=== PATIENT | male | born 1965 | race Caucasian/White ===

== ENCOUNTER 2019-08-02 08:31 | Inpatient (IN) | payer MEDICAID ==
[2019-08-02] MEDS ORDERED: HYDROmorphone 0.5 MG/0.5 ML Syringe IVPUSH ONE ×3 (08:51→11:50)
[2019-08-02] MEDS ORDERED: Metoclopramide 10 MG/2 ML SDV IVPUSH ONE (08:51)
--- NOTE | 2019-08-02 08:56 | EDM.PDOC ---
ED HPI GENERAL MEDICAL PROBLEM - General Chief Complaint: Abdominal Pain Stated Complaint: ABDOMINAL PAIN Time Seen by Provider: 08/02/19 08:40 Source of Information: Reports: Patient History Limitations: Reports: No Limitations - History of Present Illness INITIAL COMMENTS - FREE TEXT/NARRATIVE: 54-year-old male presents to the ED with diffuse abdominal pain. Associate with nausea and vomiting if he tries to eat or drink anything for the last 4 days. Pain started across the mid abdomen on Monday, July 28. Started vomiting the following morning. Was able to keep down a wee bit of food on July 28. Pain is gradually increased in intensity and is constant with a colicky component. He is aware of pain particular in the right upper quadrant of the abdomen and across the lower abdomen. He had 2 diarrhea stools yesterday without blood. Emesis is been all bilious or recently drank water fluids. Nothing will stay down. No fever or chills. No back pain. Pain is worsened slightly by deep breathing. He still feels he is passing small quantities of flatus. He feels bloated and distended. Previous surgery is that of inguinal herniorrhaphy repair x2 with mesh grafting done at 2 separate occasions. First surgey was 2 years ago Onset: Gradual Onset Date: 07/29/19 Duration: Day(s):, Constant, Getting Worse, Other (Is a colicky component to the pain.) Location: Reports: Abdomen (Generalized abdominal pain but perhaps worse right upper quadrant). Denies: Radiates to Quality: Reports: Ache, Sharp, Stabbing Severity: Moderate (710) Improves with: Reports: None Worsens with: Reports: Eating, Movement Context: Reports: Other (Spontaneous occurrence). Denies: Activity (But makes it worse. Riding in the vehicle made it worse.), Exercise, Lifting, Sick Contact, Trauma Associated Symptoms: Reports: Diaphoresis (Became diaphoretic this morning.), Loss of Appetite, Malaise, Nausea/Vomiting (Intractable nausea vomiting of bilious material), Syncope (Syncope today when he got up from bed). Denies: Confusion, Chest Pain, Cough, cough w sputum, Fever/Chills, Headaches Treatments MEDICAL POLICY SPECIALIST: Reports: Other (see below) (Nothing will stay down) Right Upper Abdomen Pain Score (Numeric/FACES): 8 - Related Data Allergies Allergy/AdvReac Type Severity Reaction Status Date / Time No Known Allergies Allergy Verified 08/02/19 13:18 Home Meds: Home Meds Acetaminophen/oxyCODONE [Percocet 325-10 MG] 1 tab PO BID 08/02/19 [History] Meloxicam 15 mg PO DAILY 08/02/19 [History] Sildenafil [Revatio] 20 mg PO ASDIRECTED PRN 08/02/19 [History] carisoprodoL [Soma] 350 mg PO BID 08/02/19 [History] Past Medical History - Past Surgical History HEENT Surgical History: Reports: Tonsillectomy GI Surgical History: Reports: Hernia, Inguinal Social & Family History - Tobacco Use Smoking Status *Q: Never Smoker - Caffeine Use Caffeine Use: Reports: None - Alcohol Use Alcohol Use History: Yes Days Per Week of Alcohol Use: 2 Number of Drinks Per Day: 10 Total Drinks Per Week: 20 Alcohol Use Frequency: Binges, Weekly - Living Situation & Occupation Living situation: Reports: Single ED ROS GENERAL - Review of Systems Review Of Systems: See Below Constitutional: Reports: Malaise, Weakness, Fatigue, Diaphoresis (Mostly this morning and last evening. Associated with diarrhea stools and feeling faint), Weight Loss. Denies: Fever, Chills HEENT: Reports: No Symptoms Respiratory: Reports: No Symptoms Cardiovascular: Reports: No Symptoms Endocrine: Reports: No Symptoms GI/Abdominal: Reports: Abdominal Pain (See history of present illness), Diarrhea (To lose diarrhea stools yesterday with no blood), Nausea, Vomiting ( Rectal nausea vomiting of bilious material). Denies: Decreased Appetite : Reports: Other (Urine is quite dark in color) Musculoskeletal: Reports: No Symptoms Skin: Reports: No Symptoms Neurological: Reports: Dizziness Psychiatric: Reports: No Symptoms (Near syncope this morning.) Hematologic/Lymphatic: Reports: No Symptoms Immunologic: Reports: No Symptoms ED EXAM, GI/ABD - Physical Exam Exam: See Below Exam Limited By: No Limitations General Appearance: Alert, WD/WN, Moderate Distress, Other (Temperature is 36.4. Heart rate is 89 and sinus respiratory is 20 BP 123/86 pulse ox 99% room air) Eyes: Bilateral: Normal Appearance (No scleral icterus or blepharal pallor.) Throat/Mouth: Other (Tongue is very dry and coated.) Head: Atraumatic, Normocephalic Neck: Normal Inspection, Supple, Non-Tender, Limited Range of Motion (He has previously fractured his neck and has very limited lateral rotation and extension and flexion of his neck. Recent steroid injection to his neck 5 days ago. Radiculopathy into his left upper extremity.). No: Lymphadenopathy (L), Lymphadenopathy (R) Respiratory/Chest: No Respiratory Distress, Lungs Clear, Normal Breath Sounds, No Accessory Muscle Use, Chest Non-Tender Cardiovascular: Normal Peripheral Pulses, Regular Rate, Rhythm, No Edema, No Murmur, No Rub GI/Abdominal Exam: No Organomegaly, No Abnormal Bruit, No Mass, Distended ( Absence of bowel sounds throughout. Distended and firm to palpation without any tympany.), Guarding, Tender (Generalized tenderness guarding slightly right upper quadrant and left lower quadrant of the abdomen.), Abnormal Bowel Sounds, Other (Be positive Paige sign). No: Rebound (Male) Exam: No Hernia, Other (Evidence of bilateral inguinal hernia raphe's. ) Back Exam: Normal Inspection, Full Range of Motion. No: CVA Tenderness (L), CVA Tenderness (R) Extremities: Normal Inspection, Normal Range of Motion, Non-Tender, No Pedal Edema Neurological: Alert, Oriented, CN II-XII Intact, Normal Cognition, Normal Gait, No Motor/Sensory Deficits Psychiatric: Anxious Skin Exam: Warm, Dry, Intact, Normal Color, No Rash EKG INTERPRETATION EKG Date: 08/02/19 Time: 10:08 Rhythm: Other (Sinus tachycardia) Rate (Beats/Min): 120 [place]: Normal P-Wave: Enlarged (Consider left atrial hypertrophy) QRS: Other (Early R wave transition V3. Consider septal hypertrophy pattern) ST-T: Normal QT: Prolonged (Moderately prolonged) EKG Interpretation Comments: Abnormal ECG Course - Vital Signs Last Recorded V/S: Last Vital Signs Temp 36.4 C 08/02/19 08:39 Pulse 132 H 08/02/19 08:39 Resp 20 08/02/19 08:39 BP 110/75 08/02/19 09:42 Pulse Ox 99 08/02/19 08:39 - Orders/Labs/Meds Orders: Active Orders 24 hr Category Date Time Status EKG Documentation Completion [RC] STAT Care 08/02/19 08:52 Active Orthostatic Vital Signs [RC] ASDIRECTED Care 08/02/19 08:54 Active CULTURE BLOOD [BC] Stat Lab 08/02/19 09:28 Received CULTURE BLOOD [BC] Stat Lab 08/02/19 09:35 Received MAGNESIUM [CHEM] AM Lab 08/03/19 05:11 Ordered MAGNESIUM [CHEM] AM Lab 08/04/19 05:11 Ordered MAGNESIUM [CHEM] AM Lab 08/05/19 05:11 Ordered Sodium Chloride 0.9% [Saline Flush] Med 08/02/19 10:12 Active 10 ml FLUSH ONETIME PRN Blood Culture x2 Reflex Set [OM.PC] Stat Oth 08/02/19 09:19 Ordered Medication Orders Acetaminophen (Tylenol) 650 mg PO Q4H PRN PRN Reason: Pain (Mild 1-3)/fever Dextrose/Sodium Chloride (Dextrose 5%-Normal Saline) 1,000 mls @ 150 mls/hr IV ASDIRECTED AZUL Stop: 08/03/19 19:54 Last Admin: 08/02/19 13:54 Dose: 150 mls/hr Magnesium Sulfate 4 gm/ Premix 50 mls @ 12.5 mls/hr IV ONETIME ONE Stop: 08/02/19 17:59 Last Admin: 08/02/19 13:54 Dose: 12.5 mls/hr Ketorolac Tromethamine (Toradol) 30 mg IV Q6H PRN PRN Reason: Pain (moderate 4-6) Lorazepam (Ativan) 0 mg IVPUSH Q4H PRN; Protocol PRN Reason: withdrawl Morphine Sulfate (Morphine) 2 mg IVPUSH Q2H PRN PRN Reason: Pain (severe 7-10) Stop: 08/03/19 13:04 Ondansetron HCl (Zofran Odt) 4 mg PO Q6H PRN PRN Reason: nausea, able to take PO Ondansetron HCl (Zofran) 4 mg IV Q6H PRN PRN Reason: Nausea/Vomiting Carisoprodol [Soma] (350 Mg) 0 each PO BID AZUL Meloxicam 15 Mg 0 each PO DAILY [facility] Sodium Chloride (Saline Flush) 10 ml FLUSH ONETIME PRN PRN Reason: IV FLUSH Last Admin: 08/02/19 10:27 Dose: 10 ml Labs: Laboratory Tests 08/02/19 08/02/19 08/02/19 Range/Units 09:00 09:00 09:00 WBC 23.94 H (4.23-9.07) K/mm3 RBC 3.91 L (4.63-6.08) M/mm3 Hgb 13.4 L (13.7-17.5) gm/dl Hct 38.7 L (40.1-51.0) % MCV 99.0 H (79.0-92.2) fl MCH 34.3 H (25.7-32.2) pg MCHC 34.6 (32.2-35.5) g/dl RDW Std Deviation 43.0 (35.1-43.9) fL Plt Count 345 H (163-337) K/mm3 MPV 9.3 L (9.4-12.3) fl Neutrophils % (Manual) 88 H (40-60) % Band Neutrophils % 0 (0-10) % Lymphocytes % (Manual) 7 L (20-40) % Atypical Lymphs % 0 % Monocytes % (Manual) 5 (2-10) % Eosinophils % (Manual) 0 L (0.8-7.0) % Basophils % (Manual) 0 L (0.2-1.2) Platelet Estimate Adequate RBC Morph Comment Normal PT 10.3 (9.7-12.0) SECONDS INR 0.94 APTT 21 L (22-31) SECONDS Sodium 137 (136-145) mEq/L Potassium 3.6 (3.5-5.1) mEq/L Chloride 98 (98-107) mEq/L Carbon Dioxide 27 (21-32) mEq/L Anion Gap 15.6 H (5-15) BUN 16 (7-18) mg/dL Creatinine 1.2 (0.7-1.3) mg/dL Est Cr Clr Drug Dosing 83.72 mL/min Estimated GFR (MDRD) > 60 (>60) mL/min BUN/Creatinine Ratio 13.3 L (14-18) Glucose 216 H (74-106) mg/dL Lactic Acid (0.4-2.0) mmol/L Calcium 8.8 (8.5-10.1) mg/dL Phosphorus (2.6-4.7) mg/dL Magnesium (1.8-2.4) mg/dl Total Bilirubin 1.1 H (0.2-1.0) mg/dL GGT 73 (15-85) U/L AST 16 (15-37) U/L ALT 30 (16-63) U/L Alkaline Phosphatase 59 (46-116) U/L Lactate Dehydrogenase (85-227) U/L C-Reactive Protein 1.0 (<1.0) mg/dL Total Protein 7.1 (6.4-8.2) g/dl Albumin 3.6 (3.4-5.0) g/dl Globulin 3.5 gm/dL Albumin/Globulin Ratio 1.0 (1-2) Triglycerides (<150) mg/dL Cholesterol (<200) mg/dL LDL Cholesterol Direct (<100) mg/dL HDL Cholesterol (40-59) mg/dL Lipase 2256 H (73-393) U/L Ketones (0.0-0.3) mM Hepatitis C Antibody (NEGATIVE) 08/02/19 08/02/19 08/02/19 Range/Units 09:00 09:00 09:00 WBC (4.23-9.07) K/mm3 RBC (4.63-6.08) M/mm3 Hgb (13.7-17.5) gm/dl Hct (40.1-51.0) % MCV (79.0-92.2) fl MCH (25.7-32.2) pg MCHC (32.2-35.5) g/dl RDW Std Deviation (35.1-43.9) fL Plt Count (163-337) K/mm3 MPV (9.4-12.3) fl Neutrophils % (Manual) (40-60) % Band Neutrophils % (0-10) % Lymphocytes % (Manual) (20-40) % Atypical Lymphs % % Monocytes % (Manual) (2-10) % Eosinophils % (Manual) (0.8-7.0) % Basophils % (Manual) (0.2-1.2) Platelet Estimate RBC Morph Comment PT (9.7-12.0) SECONDS INR APTT (22-31) SECONDS Sodium (136-145) mEq/L Potassium (3.5-5.1) mEq/L Chloride (98-107) mEq/L Carbon Dioxide (21-32) mEq/L Anion Gap (5-15) BUN (7-18) mg/dL Creatinine (0.7-1.3) mg/dL Est Cr Clr Drug Dosing mL/min Estimated GFR (MDRD) (>60) mL/min BUN/Creatinine Ratio (14-18) Glucose (74-106) mg/dL Lactic Acid (0.4-2.0) mmol/L Calcium (8.5-10.1) mg/dL Phosphorus (2.6-4.7) mg/dL Magnesium 1.3 L (1.8-2.4) mg/dl Total Bilirubin (0.2-1.0) mg/dL GGT (15-85) U/L AST (15-37) U/L ALT (16-63) U/L Alkaline Phosphatase (46-116) U/L Lactate Dehydrogenase (85-227) U/L C-Reactive Protein (<1.0) mg/dL Total Protein (6.4-8.2) g/dl Albumin (3.4-5.0) g/dl Globulin gm/dL Albumin/Globulin Ratio (1-2) Triglycerides (<150) mg/dL Cholesterol (<200) mg/dL LDL Cholesterol Direct (<100) mg/dL HDL Cholesterol (40-59) mg/dL Lipase (73-393) U/L Ketones 0.54 (0.0-0.3) mM Hepatitis C Antibody Negative (NEGATIVE) 08/02/19 08/02/19 08/02/19 Range/Units 09:00 09:00 09:28 WBC (4.23-9.07) K/mm3 RBC (4.63-6.08) M/mm3 Hgb (13.7-17.5) gm/dl Hct (40.1-51.0) % MCV (79.0-92.2) fl MCH (25.7-32.2) pg MCHC (32.2-35.5) g/dl RDW Std Deviation (35.1-43.9) fL Plt Count (163-337) K/mm3 MPV (9.4-12.3) fl Neutrophils % (Manual) (40-60) % Band Neutrophils % (0-10) % Lymphocytes % (Manual) (20-40) % Atypical Lymphs % % Monocytes % (Manual) (2-10) % Eosinophils % (Manual) (0.8-7.0) % Basophils % (Manual) (0.2-1.2) Platelet Estimate RBC Morph Comment PT (9.7-12.0) SECONDS INR APTT (22-31) SECONDS Sodium (136-145) mEq/L Potassium (3.5-5.1) mEq/L Chloride (98-107) mEq/L Carbon Dioxide (21-32) mEq/L Anion Gap (5-15) BUN (7-18) mg/dL Creatinine (0.7-1.3) mg/dL Est Cr Clr Drug Dosing mL/min Estimated GFR (MDRD) (>60) mL/min BUN/Creatinine Ratio (14-18) Glucose (74-106) mg/dL Lactic Acid 2.6 H* (0.4-2.0) mmol/L Calcium (8.5-10.1) mg/dL Phosphorus 4.8 H (2.6-4.7) mg/dL Magnesium (1.8-2.4) mg/dl Total Bilirubin (0.2-1.0) mg/dL GGT (15-85) U/L AST (15-37) U/L ALT (16-63) U/L Alkaline Phosphatase (46-116) U/L Lactate Dehydrogenase 219 (85-227) U/L C-Reactive Protein (<1.0) mg/dL Total Protein (6.4-8.2) g/dl Albumin (3.4-5.0) g/dl Globulin gm/dL Albumin/Globulin Ratio (1-2) Triglycerides 108 (<150) mg/dL Cholesterol 213 H (<200) mg/dL LDL Cholesterol Direct 118 H* (<100) mg/dL HDL Cholesterol 72.0 H (40-59) mg/dL Lipase (73-393) U/L Ketones (0.0-0.3) mM Hepatitis C Antibody (NEGATIVE) Meds: Medications Generic Name Dose Route Start Last Admin Trade Name Freq PRN Reason Stop Dose Admin Acetaminophen 650 mg 08/02/19 13:02 Tylenol PO Q4H PRN Pain (Mild 1-3)/fever Dextrose/Sodium Chloride 1,000 mls @ 150 mls/hr 08/02/19 13:15 08/02/19 13:54 Dextrose 5%-Normal Saline IV 08/03/19 19:54 150 mls/hr ASDIRECTED AZUL Administration Magnesium Sulfate 4 gm/ Premix 50 mls @ 12.5 mls/hr 08/02/19 14:00 08/02/19 13:54 IV 08/02/19 17:59 12.5 mls/hr ONETIME ONE Administration Ketorolac Tromethamine 30 mg 08/02/19 13:02 Toradol IV Q6H PRN Pain (moderate 4-6) Lorazepam 0 mg 08/02/19 14:01 Ativan IVPUSH Q4H PRN withdrawl Protocol Morphine Sulfate 2 mg 08/02/19 13:02 Morphine IVPUSH 08/03/19 13:04 Q2H PRN Pain (severe 7-10) Ondansetron HCl 4 mg 08/02/19 13:02 Zofran Odt PO Q6H PRN nausea, able to take PO Ondansetron HCl 4 mg 08/02/19 13:02 Zofran IV Q6H PRN Nausea/Vomiting Carisoprodol [Soma] 0 each 08/02/19 21:00 350 Mg PO BID AZUL Meloxicam 15 Mg 0 each 08/03/19 09:00 PO DAILY AZUL Sodium Chloride 10 ml 08/02/19 10:12 08/02/19 10:27 Saline Flush FLUSH 10 ml ONETIME PRN Administration IV FLUSH Discontinued Medications Generic Name Dose Route Start Last Admin Trade Name Freq PRN Reason Stop Dose Admin Enoxaparin Sodium 40 mg 08/02/19 14:00 Lovenox SUBCUT Q24H AZUL Hydromorphone HCl 0.5 mg 08/02/19 08:51 08/02/19 09:04 Dilaudid IVPUSH 08/02/19 08:52 0.5 mg ONETIME ONE Administration Hydromorphone HCl 0.5 mg 08/02/19 09:58 08/02/19 10:05 Dilaudid IVPUSH 08/02/19 09:59 0.5 mg ONETIME ONE Administration Hydromorphone HCl 0.5 mg 08/02/19 11:50 08/02/19 11:56 Dilaudid IVPUSH 08/02/19 11:51 0.5 mg ONETIME ONE Administration Dextrose/Lactated Ringer's 1,000 mls @ 999 mls/hr 08/02/19 09:00 08/02/19 09: 04 Dextrose 5%-Lactated Ringers IV 999 mls/hr ASDIRECTED AZUL Administration Dextrose/Lactated Ringer's 1,000 mls @ 500 mls/hr 08/02/19 10:15 08/02/19 10: 13 Dextrose 5%-Lactated Ringers IV 500 mls/hr ASDIRECTED AZUL Administration Iopamidol 100 ml 08/02/19 10:12 08/02/19 10:26 Isovue-370 (76%) IVPUSH 08/02/19 10:13 100 ml ONETIME ONE Administration Metoclopramide HCl 10 mg 08/02/19 08:51 08/02/19 09:04 Reglan IVPUSH 08/02/19 08:52 10 mg ONETIME ONE Administration - Radiology Interpretation Free Text/Narrative:: 54-year-old male presents to the ED with diffuse abdominal pain perhaps slightly worse right upper quadrant of the abdomen and left lower quadrant of the abdomen. He is distended but no tympany to percussion. He has absence of bowel sounds. He has been ill since Monday, July 28 i.e. 4 days ago. Has been able to keep anything down for the last 3 days. 2 diarrhea stools yesterday. No blood. Previous abdominal surgeries that of 2 inguinal herniorrhaphies with mesh grafting done at separate occasions. Plan IV D5 LR at open. Dilaudid 0.5 mg IV with Reglan 10 mg IV for pain and nausea relief. Orthostatic BPs. Patient is for chest x-ray and KUB. Routine labs to include a serum lipase and GGT. Questioning whether he has an acute cholecystitis although he is afebrile. - Re-Assessments/Exams Free Text/Narrative Re-Assessment/Exam: 08/02/19 09:04 and cannot complete orthostatic blood pressure. He got too dizzy and lightheaded. Systolic dropped as low as 85. I will have GB ultrasound ordered. 08/02/19 09:52 Chest x-ray done portably reveals injuries to multiple ribs on the right side which have healed. Appears to be a loculated chronic pneumothorax on the right side as well. This does cause some deformity of the anterior chest wall right side. Lungs are clear. Cardiac silhouette is normal. No free air evident. KUB reveals a few dilated loops of small bowel mid abdomen with no air-fluid levels. Ileus type pattern. Small amount of stool in the hepatic flexure. Paucity of gas throughout the colon.Labs reveal a markedly elevated white count of 23.94 with 88% neutrophils no bands cells reported. Hemoglobin is 13.4 with hematocrit of 38.7. Platelet count is 345, 000. Coags reveal a PT of 10.3 and INR of 0.94. PTT is 21. Sodium 137 with a potassium of 3.6. Chloride is 98 with a bicarb of 27. Anion gap is 15.6. BUN is 16 with a creatinine of 1.2. GFR is greater than 60. Glucose is elevated at 216. Patient is not known to be diabetic suspect stress response. Calcium is 8.8. Bilirubin minimally elevated at 1.1. The remainder of the liver function is normal. C-reactive protein is 1.0 lipase is elevated at 2256. Total protein 7.1 with an albumin fraction of 3.6 08/02/19 09:58 ultrasound of the gallbladder reveals no obvious stones. No pericholecystic fluid. Common bile duct is not visible. Appears to be a small amount of fluid around the liver. Head of the pancreas is not well visualized due to bowel gas. We will therefore proceed with CT of the abdomen with IV contrast only. Patient's pain is somewhat improved but could be better. Will repeat Dilaudid 0.5 mg IV 08/02/19 10:08 patient has completed first liter of D5 LR. Will repeat another liter at 500 mils per hour. 08/02/19 10:45 CT of the abdomen and pelvis has been performed with IV contrast only as the patient continues to vomit. It reveals a minimal hiatal hernia. Cardiac silhouette and lung bases are normal. Liver appears to be within normal limits with moderate fatty infiltration. No intraductal dilatation. Gallbladder is distended and appears to be normal without any calcified gallstones. Pancreas is seen and is slight haziness around the head suspicious for mild pancreatitis. Spleen is normal. There is notable fluid throughout the pelvis and extending up both paracolic gutters and around the liver and spleen. Hounsfield units on the fluid seen within the pelvis are suspicious for blood. Etiology for this presumed blood is not definitively visualized on this study. This is compatible with ascites. Both kidneys appear to be normal with no obstruction of the ureters. Low-density lesion seen within the right kidney which appears to be a simple cyst. It is 2.1 cm in size. There is also a low-density lesion in the left kidney measuring 6 mm. Believed to be cystic as well. Bladder appears to be normal. Visualized portions of the small and large bowel show some dilated loops of small bowel containing primarily fluid with no air-fluid levels to suggest obstruction. Small amount of stool present in the right hemicolon. Appendix is not definitely visualized but does not show any evidence of periappendiceal infiltrate. Clinically the patient has ascites although the Hounsfield units suggest it may be blood this would be unlikely as his hemoglobin is still 13.4. We will asked Dr. Gallegos on-call surgeon to see him in consultation. 08/02/19 10:51 ultrasound of the gallbladder reveals liver to be echogenic most left likely representing prominent fatty infiltration. Liver is otherwise not well seen because of the fatty infiltration. Gallbladder contains no shadowing gallstones no gallbladder wall thickening is seen. Small amount of ascites is seen within the upper right abdomen. Right kidney shows no hydronephrosis or mass. It measures 11.1 cm in length. Pancreas is mostly obscured from bowel gas. Inferior vena cava is patent. Main portal vein shows normal hepatopetal flow. Lactic acid returned elevated at 2.6. Serum ketones are elevated at 0.54. Magnesium not yet available.. 08/02/19 11:[address] Hieu Gallegos on-call hospitalist and he will see the patient in the ED. Plan will be to admit the patient for suspect acute pancreatitis with ascites to the hospitalist at this time. Dr. Silva is ornamental bronze worker. Have spoken with Dr. Silva and he is excepted care. 08/02/19 11:[address] Gallegos will be coming to see him in consultation and he will be admitted to the hospital per Dr. Silva for pancreatitis management. He has no history of ascites. Dates the pain is starting to come back. Will repeat Dilaudid 0.5 mg IV. 08/02/19 12:05 Hepatitis C screen is negative. Departure - Departure Time of Disposition: 12:35 Disposition: Admitted As Inpatient 68 Condition: Fair Clinical Impression: Depletion of volume of extracellular fluid, Metabolic acidosis with increased anion gap and accumulation of organic acids Acute pancreatitis without necrosis or infection, unspecified Qualifiers: Pancreatitis type: alcohol induced Qualified Code(s): K85.20 - Alcohol induced acute pancreatitis without necrosis or infection Ascites Qualifiers: Ascites type: other type Qualified Code(s): R18.8 - Other ascites Nausea & vomiting Qualifiers: Vomiting type: unspecified Vomiting Intractability: non-intractable Qualified Code(s): R11.2 - Nausea with vomiting, unspecified - Discharge Information *PRESCRIPTION DRUG MONITORING PROGRAM REVIEWED*: Not Applicable *COPY OF PRESCRIPTION DRUG MONITORING REPORT IN PATIENT ERICA: Not Applicable Sepsis Event Note - Evaluation Sepsis Screening Result: No Definite Risk - Focused Exam Vital Signs: Vital Signs Temp Pulse Resp BP Pulse Ox 08/02/19 09:42 110/75 08/02/19 08:39 36.4 C 132 H 20 123/86 99 Date Exam was Performed: 08/02/19 Time Exam was Performed: 17:05 - My Orders Last 24 Hours: My Active Orders 08/02/19 08:52 EKG Documentation Completion [RC] STAT 08/02/19 08:54 Orthostatic Vital Signs [RC] ASDIRECTED 08/02/19 09:19 Blood Culture x2 Reflex Set [OM.PC] Stat 08/02/19 09:28 CULTURE BLOOD [BC] Stat 08/02/19 09:35 CULTURE BLOOD [BC] Stat 08/02/19 10:12 Sodium Chloride 0.9% [Saline Flush] 10 ml FLUSH ONETIME PRN 08/03/19 05:11 MAGNESIUM [CHEM] AM 08/04/19 05:11 MAGNESIUM [CHEM] AM 08/05/19 05:11 MAGNESIUM [CHEM] AM - Assessment/Plan Last 24 Hours: My Active Orders 08/02/19 08:52 EKG Documentation Completion [RC] STAT 08/02/19 08:54 Orthostatic Vital Signs [RC] ASDIRECTED 08/02/19 09:19 Blood Culture x2 Reflex Set [OM.PC] Stat 08/02/19 09:28 CULTURE BLOOD [BC] Stat 08/02/19 09:35 CULTURE BLOOD [BC] Stat 08/02/19 10:12 Sodium Chloride 0.9% [Saline Flush] 10 ml FLUSH ONETIME PRN 08/03/19 05:11 MAGNESIUM [CHEM] AM 08/04/19 05:11 MAGNESIUM [CHEM] AM 08/05/19 05:11 MAGNESIUM [CHEM] AM
[2019-08-02] MEDS ORDERED: Dextrose 5%-Lactated Ringers 1,000 ML IV SCH ×2 (09:00→10:15)
--- NOTE | 2019-08-02 09:42 | CR ---
Abdomen: Supine view of the abdomen was obtained. Comparison: No previous study. Old rib fractures are partially visualized and appear to be healed within the right chest. Bowel gas pattern is normal. No abnormal calcifications or soft tissue abnormality is appreciated. Impression: 1. Nothing acute is seen on supine abdominal x-ray. Diagnostic code #2 This report was dictated in MDT
--- NOTE | 2019-08-02 09:59 | CR ---
Chest: PA view of the chest was obtained. Comparison: No previous chest imaging. Old healed bony trauma is noted within the right ribs and right scapula as well as distal right clavicle. Small amount of air noted within the pleural space within the upper right chest which is most likely chronic. No acute parenchymal change is otherwise seen. Heart size and mediastinum are normal. Impression: 1. Small pneumothorax within the right upper chest which most likely is loculated and chronic 2. Old bony trauma as noted above. 3. Nothing acute is definitely appreciated. Diagnostic code #2 This report was dictated in MDT
[2019-08-02] MEDS ORDERED: Iopamidol 755 Mg/ML 100 ML Bottle IVPUSH ONE (10:12)
[2019-08-02] MEDS ORDERED: Sodium Chloride 0.9% 10 ML Syringe FLUSH PRN (10:12)
--- NOTE | 2019-08-02 10:27 | US ---
Right upper quadrant abdominal ultrasound: Multiple real-time images of the upper right abdomen were obtained. Liver is echogenic most likely representing prominent fatty infiltration. Liver is otherwise not well seen because of the fatty infiltration. Gallbladder contains no shadowing gallstones. No gallbladder wall thickening is seen. Small amount of ascites is seen within the upper right abdomen. Right kidney shows no hydronephrosis or mass. Right kidney measures 11.1 cm in length. Pancreas is mostly obscured from bowel gas. Inferior vena cava is patent. Main portal vein shows normal hepatopedal flow. Impression: 1. Echogenic liver most likely representing prominent fatty infiltration. 2. Mild amount of ascites within the upper right abdomen. 3. Obscured pancreas due to bowel gas. Diagnostic code #3 This report was dictated in MDT
--- NOTE | 2019-08-02 10:49 | CT ---
CT abdomen and pelvis Technique: Multiple axial sections were obtained from above the dome of the diaphragm inferiorly through the pubic symphysis. Intravenous contrast was utilized. No oral contrast was given. Comparison: Previous right upper quadrant abdominal ultrasound performed earlier on the same day (9:39 AM) Findings: Visualized lung bases show nothing acute. Partially visualized old right-sided rib fractures are seen which appear healed. Fatty infiltration is noted within the liver. Gallbladder contains no calcified gallstones. Spleen appears within normal limits. Adrenal glands show no nodule. Pancreas shows slight haziness around the head suspicious for mild pancreatitis. Kidneys show symmetric contrast enhancement. Low density lesion is seen within the right kidney which does not have Hounsfield unit measurements of a simple cyst and measures 2.1 cm in size. Small low density finding is seen with left kidney measuring 6 mm. Delayed images shows contrast within the distal ureters as well as within the bladder. Aorta shows no aneurysm with atherosclerotic calcification. No retroperitoneal adenopathy or mesenteric abnormalities are seen. Fluid is seen within the pelvis which has Hounsfield unit measurements suspicious for blood. Fluid is also seen around the liver and spleen as well as within the paracolic gutters. Etiology for this presumed blood is not definitely visualized on this study. Bone window settings were reviewed which shows mild scattered degenerative change within the spine. Impression: 1. Fluid within the pelvis which appears to have Hounsfield unit measurements of blood. Lesser fluid is seen within the upper abdomen around the liver and spleen and within the paracolic gutters. Etiology of this finding is not seen on the exam. 2. Questionable mild pancreatitis around the pancreatic head and please correlate with amylase and lipase. 3. Low density lesion within the right kidney which is nonspecific regarding Hounsfield unit measurements. Differential includes solid lesion or hemorrhagic cyst. Nonemergent MRI is recommended to further evaluate. 4. Fatty infiltration within the liver and other findings as noted above which are felt to be nonacute. Diagnostic code #5 This report was dictated in MDT
--- NOTE | 2019-08-02 12:02 | PCM.HP.2 ---
H&P History of Present Illness - General Date of Service: 08/02/19 Source of Information: Patient, Old Records, Provider, RN, RN Notes Reviewed History Limitations: Reports: No Limitations - History of Present Illness Initial Comments - Free Text/Narative: Hieu Odell is a 54 yo male who presented to our ED on 08/02/19 with abdominal pain, nausea, and vomiting. He reports pain started across his mid abdomen on Monday, July 28 and then he began to vomit. He was able to keep down a small amount of fluid on July 28 but since then anytime he attempts to eat or drink he is vomited. Pain is increased and he reports it is constant with a colicky component. Reports pain is most prominent in his right upper quadrant and epigastric area. Reports he had 2 episodes of diarrhea yesterday. Reports his emesis has been bilious with no blood. Denies any fever, chills, or back pain. He has had inguinal hernia repair on 2 occasions. He also reports having had neck surgery secondary to a cervical spine fracture resulted in a PEG tube being placed. Twelve-lead EKG is obtained showing a sinus tachycardia at 120 bpm with enlarged P waves and early R wave transition in V3. There is a prolonged QT C. He is afebrile and blood pressure is 110/75. Pulse ox is 99% on room air with respiratory rate of 20. Labs are obtained showing leukocytosis at 23.94. Hemoglobin is barely low at 13.4. Platelets are high at 345,000. Neutrophils are elevated at 8% but there is no bandemia. INR is normal at 0.94. Sodium 137. Potassium on the low end of normal at 3.6. Chloride is 27. Anion gap is slightly elevated at 15.6. Creatinine is 1.2. GFR is greater than 60. Glucose is elevated to 16. Calcium is 8.8. Bilirubin is 1.1. GGT is 73. AST is 16, ALT 30, alkaline phosphatase 59. CRP is 1.0. Albumin is good at 3.6. Lipase is very high at 2256. Magnesium is low at 1.3. Ketones are elevated at 154. Hep C antibody is negative. Lactic acid is high at 2.6. He is given 2 D5LR fluid boluses and Dilaudid for pain. Chest x-rays obtained showing a small pneumothorax in the right upper chest which most likely is loculated and chronic. There is old bony trauma noted and nothing acute.0 abdominal ultrasound is obtained showing an echogenic liver most likely representing prominent fatty infiltration. Mild amount of ascites within the right upper abdomen. Obscured pancreas due to bowel gas. CT of the abdomen and pelvis is obtained showing fluid within the pelvis which appears to have a Hounsfield unit measurements of blood. Lesser fluid is seen within the upper abdomen around the liver and spleen and within the paracolic gutters. Etiology of findings not seen on his exam. Questionable mild pancreatitis around the pancreatic head and please correlate with amylase and lipase. Low-density lesion within the right kidney which is nonspecific regarding Hounsfield unit measurements differential includes solid lesion or hemorrhagic cyst. Nonemergent MRI is recommended to further evaluate. Fatty filtration with the liver and other findings as noted above which are felt to be nonacute. To do orthostatic vital signs in the ED however when he stood up he was too dizzy and his systolic blood pressure dropped to 85. Dr. Gallegos, general surgeon, was contacted in the ER and said he would be by to see this patient. He carries a history of prior neck surgery and he is on chronic opioid and muscle relaxant therapy for this. He was never a smoker. He does report alcohol use and states that he drinks significantly on his days off but then does not drink when he is working. He subsequently admitted to the medical floor for monitoring treatment of his pancreatitis, hypovolemia, and hypomagnesemia. Right Upper Abdomen Pain Score (Numeric/FACES): 8 - Related Data Allergies/Adverse Reactions: Allergies Allergy/AdvReac Type Severity Reaction Status Date / Time No Known Allergies Allergy Verified 08/02/19 13:18 Home Medications: Home Meds Acetaminophen/oxyCODONE [Percocet 325-10 MG] 1 tab PO BID 08/02/19 [History] Meloxicam 15 mg PO DAILY 08/02/19 [History] Sildenafil [Revatio] 20 mg PO ASDIRECTED PRN 08/02/19 [History] carisoprodoL [Soma] 350 mg PO BID 08/02/19 [History] Past Medical History - Past Surgical History HEENT Surgical History: Reports: Tonsillectomy GI Surgical History: Reports: Hernia, Inguinal Social & Family History - Tobacco Use Smoking Status *Q: Never Smoker - Caffeine Use Caffeine Use: Reports: None - Alcohol Use Days Per Week of Alcohol Use: 2 Number of Drinks Per Day: 10 Total Drinks Per Week: 20 - Living Situation & Occupation Living situation: Reports: Single H&P Review of Systems - Review of Systems: Review Of Systems: See Below General: Reports: No Symptoms, Fatigue (Hasn't slept much ). Denies: Fever, Chills, Malaise, Weakness HEENT: Reports: No Symptoms. Denies: Headaches, Sore Throat Pulmonary: Reports: No Symptoms. Denies: Shortness of Breath, Wheezing, Cough, Sputum Cardiovascular: Reports: Lightheadedness (when standing or ambulating ). Denies : Chest Pain, Palpitations, Dyspnea on Exertion, Edema Gastrointestinal: Reports: Abdominal Pain (RUQ>RLQ=Epigastric ), Nausea, Vomiting (earlier in day - none since ED ). Denies: Anorexia, Constipation, Diarrhea Genitourinary: Reports: No Symptoms. Denies: Pain Musculoskeletal: Reports: Neck Pain (Chronic 2/2 fractured neck) Skin: Reports: No Symptoms Psychiatric: Reports: No Symptoms. Denies: Confusion Neurological: Reports: No Symptoms, Difficulty Walking (2/2 hypotension - gets dizzy ). Denies: Weakness, Gait Disturbance Hematologic/Lymphatic: Reports: No Symptoms Immunologic: Reports: No Symptoms Exam - Exam Exam: See Below - Vital Signs Vital Signs: Last Vital Signs Temp 97.6 F 08/02/19 08:39 Pulse 132 H 08/02/19 08:39 Resp 20 08/02/19 08:39 BP 110/75 08/02/19 09:42 Pulse Ox 99 08/02/19 08:39 Weight: 220 lb - Exam Quality Assessment: DVT Prophylaxis. No: Supplemental Oxygen, Urinary Catheter General: Alert, Oriented, Cooperative. No: Mild Distress HEENT: Conjunctiva Clear, EACs Clear, Hearing Intact, Normal Nasal Septum, PERRLA. No: Mucosa Moist & [place] (dry ) Neck: Supple, Trachea Midline Lungs: Clear to Auscultation, Normal Respiratory Effort Cardiovascular: Regular Rate, Regular Rhythm GI/Abdominal Exam: Soft, Distended, Tender (RUQ>RLQ=Epigastric ), Abnormal Bowel Sounds (absent ) (Male) Exam: Deferred Rectal (Males) Exam: Deferred Extremities: Normal Inspection, Normal Range of Motion, Non-Tender, No Pedal Edema, Normal Capillary Refill Peripheral Pulses: 3+: Radial (L), Radial (R) Skin: Warm, Dry, Intact Neurological: Cranial Nerves Intact (Grossly ) Neuro Extensive - Mental Status: Alert, Oriented x3, Normal Mood/Affect - Patient Data Lab Results Last 24 hrs: Laboratory Results - last 24 hr 08/02/19 08/02/19 08/02/19 Range/Units 09:00 09:00 09:00 WBC 23.94 H (4.23-9.07) K/mm3 RBC 3.91 L (4.63-6.08) M/mm3 Hgb 13.4 L (13.7-17.5) gm/dl Hct 38.7 L (40.1-51.0) % MCV 99.0 H (79.0-92.2) fl MCH 34.3 H (25.7-32.2) pg MCHC 34.6 (32.2-35.5) g/dl RDW Std Deviation 43.0 (35.1-43.9) fL Plt Count 345 H (163-337) K/mm3 MPV 9.3 L (9.4-12.3) fl Neutrophils % (Manual) 88 H (40-60) % Band Neutrophils % 0 (0-10) % Lymphocytes % (Manual) 7 L (20-40) % Atypical Lymphs % 0 % Monocytes % (Manual) 5 (2-10) % Eosinophils % (Manual) 0 L (0.8-7.0) % Basophils % (Manual) 0 L (0.2-1.2) Platelet Estimate Adequate RBC Morph Comment Normal PT 10.3 (9.7-12.0) SECONDS INR 0.94 APTT 21 L (22-31) SECONDS Sodium 137 (136-145) mEq/L Potassium 3.6 (3.5-5.1) mEq/L Chloride 98 (98-107) mEq/L Carbon Dioxide 27 (21-32) mEq/L Anion Gap 15.6 H (5-15) BUN 16 (7-18) mg/dL Creatinine 1.2 (0.7-1.3) mg/dL Est Cr Clr Drug Dosing 83.72 mL/min Estimated GFR (MDRD) > 60 (>60) mL/min BUN/Creatinine Ratio 13.3 L (14-18) Glucose 216 H (74-106) mg/dL Lactic Acid (0.4-2.0) mmol/L Calcium 8.8 (8.5-10.1) mg/dL Magnesium (1.8-2.4) mg/dl Total Bilirubin 1.1 H (0.2-1.0) mg/dL GGT 73 (15-85) U/L AST 16 (15-37) U/L ALT 30 (16-63) U/L Alkaline Phosphatase 59 (46-116) U/L C-Reactive Protein 1.0 (<1.0) mg/dL Total Protein 7.1 (6.4-8.2) g/dl Albumin 3.6 (3.4-5.0) g/dl Globulin 3.5 gm/dL Albumin/Globulin Ratio 1.0 (1-2) Lipase 2256 H (73-393) U/L Ketones (0.0-0.3) mM Hepatitis C Antibody (NEGATIVE) 08/02/19 08/02/19 08/02/19 Range/Units 09:00 09:00 09:00 WBC (4.23-9.07) K/mm3 RBC (4.63-6.08) M/mm3 Hgb (13.7-17.5) gm/dl Hct (40.1-51.0) % MCV (79.0-92.2) fl MCH (25.7-32.2) pg MCHC (32.2-35.5) g/dl RDW Std Deviation (35.1-43.9) fL Plt Count (163-337) K/mm3 MPV (9.4-12.3) fl Neutrophils % (Manual) (40-60) % Band Neutrophils % (0-10) % Lymphocytes % (Manual) (20-40) % Atypical Lymphs % % Monocytes % (Manual) (2-10) % Eosinophils % (Manual) (0.8-7.0) % Basophils % (Manual) (0.2-1.2) Platelet Estimate RBC Morph Comment PT (9.7-12.0) SECONDS INR APTT (22-31) SECONDS Sodium (136-145) mEq/L Potassium (3.5-5.1) mEq/L Chloride (98-107) mEq/L Carbon Dioxide (21-32) mEq/L Anion Gap (5-15) BUN (7-18) mg/dL Creatinine (0.7-1.3) mg/dL Est Cr Clr Drug Dosing mL/min Estimated GFR (MDRD) (>60) mL/min BUN/Creatinine Ratio (14-18) Glucose (74-106) mg/dL Lactic Acid (0.4-2.0) mmol/L Calcium (8.5-10.1) mg/dL Magnesium 1.3 L (1.8-2.4) mg/dl Total Bilirubin (0.2-1.0) mg/dL GGT (15-85) U/L AST (15-37) U/L ALT (16-63) U/L Alkaline Phosphatase (46-116) U/L C-Reactive Protein (<1.0) mg/dL Total Protein (6.4-8.2) g/dl Albumin (3.4-5.0) g/dl Globulin gm/dL Albumin/Globulin Ratio (1-2) Lipase (73-393) U/L Ketones 0.54 (0.0-0.3) mM Hepatitis C Antibody Negative (NEGATIVE) 08/02/19 Range/Units 09:28 WBC (4.23-9.07) K/mm3 RBC (4.63-6.08) M/mm3 Hgb (13.7-17.5) gm/dl Hct (40.1-51.0) % MCV (79.0-92.2) fl MCH (25.7-32.2) pg MCHC (32.2-35.5) g/dl RDW Std Deviation (35.1-43.9) fL Plt Count (163-337) K/mm3 MPV (9.4-12.3) fl Neutrophils % (Manual) (40-60) % Band Neutrophils % (0-10) % Lymphocytes % (Manual) (20-40) % Atypical Lymphs % % Monocytes % (Manual) (2-10) % Eosinophils % (Manual) (0.8-7.0) % Basophils % (Manual) (0.2-1.2) Platelet Estimate RBC Morph Comment PT (9.7-12.0) SECONDS INR APTT (22-31) SECONDS Sodium (136-145) mEq/L Potassium (3.5-5.1) mEq/L Chloride (98-107) mEq/L Carbon Dioxide (21-32) mEq/L Anion Gap (5-15) BUN (7-18) mg/dL Creatinine (0.7-1.3) mg/dL Est Cr Clr Drug Dosing mL/min Estimated GFR (MDRD) (>60) mL/min BUN/Creatinine Ratio (14-18) Glucose (74-106) mg/dL Lactic Acid 2.6 H* (0.4-2.0) mmol/L Calcium (8.5-10.1) mg/dL Magnesium (1.8-2.4) mg/dl Total Bilirubin (0.2-1.0) mg/dL GGT (15-85) U/L AST (15-37) U/L ALT (16-63) U/L Alkaline Phosphatase (46-116) U/L C-Reactive Protein (<1.0) mg/dL Total Protein (6.4-8.2) g/dl Albumin (3.4-5.0) g/dl Globulin gm/dL Albumin/Globulin Ratio (1-2) Lipase (73-393) U/L Ketones (0.0-0.3) mM Hepatitis C Antibody (NEGATIVE) Result Diagrams: 08/02/19 09:00 08/02/19 09:00 Sepsis Event Note - Evaluation Sepsis Screening Result: No Definite Risk - Focused Exam Vital Signs: Vital Signs Temp Pulse Resp BP Pulse Ox 08/02/19 09:42 110/75 08/02/19 08:39 97.6 F 132 H 20 123/86 99 Date Exam was Performed: 08/02/19 Time Exam was Performed: 15:51 - Problem List (1) Pancreatitis SNOMED Code(s): 70261903 ICD Code: K85.90 - ACUTE PANCREATITIS WITHOUT NECROSIS OR INFECTION, UNSP Status: Acute Priority: High Current Visit: Yes Qualifiers: Chronicity: acute Pancreatitis type: alcohol induced Acute pancreatitis complication: unspecified Qualified Code(s): K85.20 - Alcohol induced acute pancreatitis without necrosis or infection (2) Elevated lactic acid level SNOMED Code(s): 9245647 ICD Code: R79.89 - OTHER SPECIFIED ABNORMAL FINDINGS OF BLOOD CHEMISTRY Status: Acute Priority: High Current Visit: Yes (3) Hypovolemia SNOMED Code(s): 640012642 ICD Code: E86.1 - HYPOVOLEMIA Status: Acute Priority: High Current Visit: Yes (4) Orthostatic hypotension SNOMED Code(s): 93425928 ICD Code: I95.1 - ORTHOSTATIC HYPOTENSION Status: Acute Priority: High Current Visit: Yes (5) Nausea & vomiting SNOMED Code(s): 01287493 ICD Code: R11.2 - NAUSEA WITH VOMITING, UNSPECIFIED Status: Acute Priority: High Current Visit: Yes Qualifiers: Vomiting type: unspecified Vomiting Intractability: non-intractable Qualified Code(s): R11.2 - Nausea with vomiting, unspecified (6) History of alcohol use SNOMED Code(s): 981795729 ICD Code: Z87.898 - PERSONAL HISTORY OF OTHER SPECIFIED CONDITIONS Status: Acute Priority: High Current Visit: Yes (7) Chronic neck pain SNOMED Code(s): 8130391010721 ICD Code: M54.2 - CERVICALGIA; G89.29 - OTHER CHRONIC PAIN Status: Chronic Priority: Medium Current Visit: No (8) History of cervical fracture SNOMED Code(s): 856041620, 303767962 ICD Code: Z87.81 - PERSONAL HISTORY OF (HEALED) TRAUMATIC FRACTURE Status: Chronic Priority: Medium Current Visit: No (9) Chronic, continuous use of opioids SNOMED Code(s): 864261805 ICD Code: F11.90 - OPIOID USE, UNSPECIFIED, UNCOMPLICATED Status: Chronic Priority: Medium Current Visit: No (10) Ascites SNOMED Code(s): 180154374 ICD Code: R18.8 - OTHER ASCITES Status: Acute Priority: High Current Visit: Yes Qualifiers: Ascites type: other type Qualified Code(s): R18.8 - Other ascites (11) Leukocytosis SNOMED Code(s): 142982090, 396667180 ICD Code: D72.829 - ELEVATED WHITE BLOOD CELL COUNT, UNSPECIFIED Status: Acute Priority: High Current Visit: Yes Qualifiers: Leukocytosis type: unspecified Qualified Code(s): D72.829 - Elevated white blood cell count, unspecified (12) Hypomagnesemia SNOMED Code(s): 455345796 ICD Code: E83.42 - HYPOMAGNESEMIA Status: Acute Priority: High Current Visit: Yes (13) Hyperbilirubinemia SNOMED Code(s): 20248264 ICD Code: E80.6 - OTHER DISORDERS OF BILIRUBIN METABOLISM Status: Acute Priority: High Current Visit: Yes (14) Abnormal CT scan SNOMED Code(s): 314332110 ICD Code: R93.89 - ABNORMAL FINDINGS ON DX IMAGING OF [facility] BODY STRUCTURES Status: Acute Priority: High Current Visit: Yes (15) High anion gap metabolic acidosis SNOMED Code(s): 44184666 ICD Code: E87.2 - ACIDOSIS Status: Acute Current Visit: Yes Problem List Initiated/Reviewed/Updated: Yes Orders Last 24hrs: Active Orders 24 hr Category Date Time Status EKG Documentation Completion [RC] STAT Care 08/02/19 08:52 Active Orthostatic Vital Signs [RC] ASDIRECTED Care 08/02/19 08:54 Active CULTURE BLOOD [BC] Stat Lab 08/02/19 09:28 Received CULTURE BLOOD [BC] Stat Lab 08/02/19 09:35 Received MAGNESIUM [CHEM] AM Lab 08/03/19 05:11 Ordered MAGNESIUM [CHEM] AM Lab 08/04/19 05:11 Ordered MAGNESIUM [CHEM] AM Lab 08/05/19 05:11 Ordered Dextrose 5%-Lactated Ringers 1,000 ml Med 08/02/19 09:00 Active IV ASDIRECTED Dextrose 5%-Lactated Ringers 1,000 ml Med 08/02/19 10:15 Active IV ASDIRECTED Sodium Chloride 0.9% [Saline Flush] Med 08/02/19 10:12 Active 10 ml FLUSH ONETIME PRN Blood Culture x2 Reflex Set [OM.PC] Stat Oth 08/02/19 09:19 Ordered Medication Orders Dextrose/Lactated Ringer's (Dextrose 5%-Lactated Ringers) 1,000 mls @ 999 mls/ hr IV ASDIRECTED AZUL Last Admin: 08/02/19 09:04 Dose: 999 mls/hr Dextrose/Lactated Ringer's (Dextrose 5%-Lactated Ringers) 1,000 mls @ 500 mls/ hr IV ASDIRECTED AZUL Last Admin: 08/02/19 10:13 Dose: 500 mls/hr Sodium Chloride (Saline Flush) 10 ml FLUSH ONETIME PRN PRN Reason: IV FLUSH Last Admin: 08/02/19 10:27 Dose: 10 ml Assessment/Plan Comment:: Pancreatitis Elevated lactic acid level Hypovolemia Orthostatic hypotension Nausea & vomiting Ascites Leukocytosis Hyperbilirubinemia Hypomagnesemia Abnormal CT scan High anion gap metabolic acidosis Reports abdominal pain that began around July 28 Nausea and vomiting began July 29 Unable to keep anything down Has had diarrhea as well Denies hematochezia, hematemesis Lab abnormalities likely 2/2 hypovolemia 2/2 vomiting and poor oral intake CT scan shows: -Fluid within pelvis with Hounsfield unit measurement of blood -Questionable mild pancreatitis -Low density lesion in right kidney - recommend nonemergent MRI to further evaluate -Fatty infiltration within the liver Dr. Gallegos, general surgery consulted in ED Magnesium 1.6 Lactic acid 2.6 - likely elevate due to hypovolemia and not infectious process Blood cultures obtained in ED CRP WNL Leukocytosis 2/2 hypovolemia and mild pancreatitis 2L IV fluids given in ED Lipase 2256 No signs of cholelithiasis - Liver enzymes normal, GGT normal PLAN - NPO - IV fluids as ordered - Blood glucose checks Q6Hr - Repeat lipase, CBC, CMP, Magnesium in AM - No obvious need for antibiotics as this time - Lipid panel ordered - 4gm magnesium ordered - Antiemetics as ordered - Repeat lactic acid in 4hrs per mary ann Srivastava's criteria: Inital - 2 pts. 1% predicted mortality rate - Pain medications as ordered - Repeat labs as ordered History of alcohol use Reports he drinks heavily when off work and abstains from ETOH when working Last reported drink was Monday Denies any problems with detox or seizures in the past Unlikely to detox given reported last drink was 5 days prior to admission PLAN - [facility] protocol - Ativan as needed - ETOH counseling - SW consult - Pancreatitis above likely induced by ETOH use Chronic neck pain History of cervical fracture Chronic, continuous use of opioids On home Percocet, meloxicam, and Soma PLAN - Continue meloxicam and soma - Monitor for worsening of symptoms - PRN pain medications as ordered DVT prophylaxis: VTE score of 1 - not indicated GI prophylaxis: Not indicated PCP: Dr. Minor Code status: Full code Disposition: Patient will be admitted for IV fluids, monitoring, and management of pancreatitis - likely ETOH induced. LOS likely 4 days. Prognosis: Guarded Recommend outpatient MRI of abdomen to evaluate right kidney lesion - unable to obtain MRI over weekend at our facility.
[2019-08-02] MEDS ORDERED: Ketorolac 30 MG/ML SDV IV PRN (13:02)
[2019-08-02] MEDS ORDERED: Acetaminophen 325 MG Tab PO PRN (13:02)
[2019-08-02] MEDS ORDERED: Ondansetron 4 MG Tab.DIS PO PRN (13:02)
[2019-08-02] MEDS ORDERED: Ondansetron 4 MG/2 ML SDV IV PRN (13:02)
--- NOTE | 2019-08-02 13:39 | PCM.CONS ---
H&P History of Present Illness - General Date of Service: 08/02/19 Admit Problem/Dx: Admission Diagnosis/Problem Admission Diagnosis/Problem Acute pancreatitis acute pancreatitis Source of Information: Patient History Limitations: Reports: No Limitations - History of Present Illness Duration of Symptoms: Reports: Day(s): Location: Reports: Abdomen Associated Symptoms: Reports: Nausea/Vomiting Other HPI/Comments: Mr. Odell is a 54 yo man presenting to the ER with a few days of nausea, vomiting and abdominal pain. He has never had pain or vomiting like this before. He denies fever or other associated symptoms. He has a history of chronic neck and back pain, and had undergone an injection just prior to the onset of his symptoms. Vomitus is described as light yellow. He denies hematemesis. In the emergency room, he is in no acute distress. RUQ US did not show evidence of gallstones. A follow-up CT scan of the abdomen and pelvis with IV contrast shows significant volume of peritoneal fluid with Hounsfield units consistent with hemoperitoneum , though no source for this possibility is identified on imaging. Mild inflammatory changes are noted around the pancreas. The patient reports history of alcoholism, but he has no known liver disease or history of pancreatitis. Lab work is significant for WBC >20,000 and lipase > 2000. His Hgb is 13.4 g/dL , and he has no history of coagulopathy or significant bleeding. He denies any recent trauma. 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 injections - Infectious Disease History Infectious Disease History: Reports: Chicken Pox - Past Surgical History HEENT Surgical History: Reports: Tonsillectomy GI Surgical History: Reports: Hernia, Inguinal Social & Family History - Family History Family Medical History: Noncontributory - Tobacco Use Smoking Status *Q: Never Smoker Used Tobacco, but Quit: Yes Month/Year Tobacco Last Used: 2015 - Caffeine Use Caffeine Use: Reports: None - Alcohol Use Days Per Week of Alcohol Use: 2 Number of Drinks Per Day: 10 Total Drinks Per Week: 20 Date of Last Drink: 07/28/19 - Recreational Drug Use Recreational Drug Use: No - Living Situation & Occupation Living situation: Reports: Single H&P Review of Systems - Review of Systems: Review Of Systems: See Below General: Reports: Malaise HEENT: Reports: No Symptoms Pulmonary: Reports: No Symptoms Cardiovascular: Reports: No Symptoms Gastrointestinal: Reports: Abdominal Pain, Distension, Nausea, Vomiting Genitourinary: Reports: No Symptoms Musculoskeletal: Reports: Neck Pain, Back Pain Skin: Reports: No Symptoms Psychiatric: Reports: No Symptoms Neurological: Reports: No Symptoms Hematologic/Lymphatic: Reports: No Symptoms Exam - Exam Exam: See Below - Vital Signs Vital Signs: Last Vital Signs Temp 36.4 C 08/02/19 08:39 Pulse 132 H 08/02/19 08:39 Resp 20 08/02/19 08:39 BP 110/75 08/02/19 09:42 Pulse Ox 99 08/02/19 08:39 Weight: 99.79 kg - Exam General: Alert, Oriented, Cooperative HEENT: Conjunctiva Clear Neck: Trachea Midline Lungs: Clear to Auscultation, Normal Respiratory Effort Cardiovascular: Regular Rate GI/Abdominal Exam: Other (distended, dull to percussion, focally tender at epigastrium, no palpable mass. LUQ scar from prior feeding gastrostomy tube) Rectal (Males) Exam: Deferred Extremities: Normal Inspection, Normal Capillary Refill Skin: Warm, Dry Neuro Extensive - Mental Status: Alert, Oriented x3 Psychiatric: Normal Mood - Patient Data Lab Results Last 24 hrs: Laboratory Results - last 24 hr 08/02/19 08/02/19 08/02/19 Range/Units 09:00 09:00 09:00 WBC 23.94 H (4.23-9.07) K/mm3 RBC 3.91 L (4.63-6.08) M/mm3 Hgb 13.4 L (13.7-17.5) gm/dl Hct 38.7 L (40.1-51.0) % MCV 99.0 H (79.0-92.2) fl MCH 34.3 H (25.7-32.2) pg MCHC 34.6 (32.2-35.5) g/dl RDW Std Deviation 43.0 (35.1-43.9) fL Plt Count 345 H (163-337) K/mm3 MPV 9.3 L (9.4-12.3) fl Neutrophils % (Manual) 88 H (40-60) % Band Neutrophils % 0 (0-10) % Lymphocytes % (Manual) 7 L (20-40) % Atypical Lymphs % 0 % Monocytes % (Manual) 5 (2-10) % Eosinophils % (Manual) 0 L (0.8-7.0) % Basophils % (Manual) 0 L (0.2-1.2) Platelet Estimate Adequate RBC Morph Comment Normal PT 10.3 (9.7-12.0) SECONDS INR 0.94 APTT 21 L (22-31) SECONDS Sodium 137 (136-145) mEq/L Potassium 3.6 (3.5-5.1) mEq/L Chloride 98 (98-107) mEq/L Carbon Dioxide 27 (21-32) mEq/L Anion Gap 15.6 H (5-15) BUN 16 (7-18) mg/dL Creatinine 1.2 (0.7-1.3) mg/dL Est Cr Clr Drug Dosing 83.72 mL/min Estimated GFR (MDRD) > 60 (>60) mL/min BUN/Creatinine Ratio 13.3 L (14-18) Glucose 216 H (74-106) mg/dL Lactic Acid (0.4-2.0) mmol/L Calcium 8.8 (8.5-10.1) mg/dL Magnesium (1.8-2.4) mg/dl Total Bilirubin 1.1 H (0.2-1.0) mg/dL GGT 73 (15-85) U/L AST 16 (15-37) U/L ALT 30 (16-63) U/L Alkaline Phosphatase 59 (46-116) U/L C-Reactive Protein 1.0 (<1.0) mg/dL Total Protein 7.1 (6.4-8.2) g/dl Albumin 3.6 (3.4-5.0) g/dl Globulin 3.5 gm/dL Albumin/Globulin Ratio 1.0 (1-2) Lipase 2256 H (73-393) U/L Ketones (0.0-0.3) mM Hepatitis C Antibody (NEGATIVE) 08/02/19 08/02/19 08/02/19 Range/Units 09:00 09:00 09:00 WBC (4.23-9.07) K/mm3 RBC (4.63-6.08) M/mm3 Hgb (13.7-17.5) gm/dl Hct (40.1-51.0) % MCV (79.0-92.2) fl MCH (25.7-32.2) pg MCHC (32.2-35.5) g/dl RDW Std Deviation (35.1-43.9) fL Plt Count (163-337) K/mm3 MPV (9.4-12.3) fl Neutrophils % (Manual) (40-60) % Band Neutrophils % (0-10) % Lymphocytes % (Manual) (20-40) % Atypical Lymphs % % Monocytes % (Manual) (2-10) % Eosinophils % (Manual) (0.8-7.0) % Basophils % (Manual) (0.2-1.2) Platelet Estimate RBC Morph Comment PT (9.7-12.0) SECONDS INR APTT (22-31) SECONDS Sodium (136-145) mEq/L Potassium (3.5-5.1) mEq/L Chloride (98-107) mEq/L Carbon Dioxide (21-32) mEq/L Anion Gap (5-15) BUN (7-18) mg/dL Creatinine (0.7-1.3) mg/dL Est Cr Clr Drug Dosing mL/min Estimated GFR (MDRD) (>60) mL/min BUN/Creatinine Ratio (14-18) Glucose (74-106) mg/dL Lactic Acid (0.4-2.0) mmol/L Calcium (8.5-10.1) mg/dL Magnesium 1.3 L (1.8-2.4) mg/dl Total Bilirubin (0.2-1.0) mg/dL GGT (15-85) U/L AST (15-37) U/L ALT (16-63) U/L Alkaline Phosphatase (46-116) U/L C-Reactive Protein (<1.0) mg/dL Total Protein (6.4-8.2) g/dl Albumin (3.4-5.0) g/dl Globulin gm/dL Albumin/Globulin Ratio (1-2) Lipase (73-393) U/L Ketones 0.54 (0.0-0.3) mM Hepatitis C Antibody Negative (NEGATIVE) 08/02/19 Range/Units 09:28 WBC (4.23-9.07) K/mm3 RBC (4.63-6.08) M/mm3 Hgb (13.7-17.5) gm/dl Hct (40.1-51.0) % MCV (79.0-92.2) fl MCH (25.7-32.2) pg MCHC (32.2-35.5) g/dl RDW Std Deviation (35.1-43.9) fL Plt Count (163-337) K/mm3 MPV (9.4-12.3) fl Neutrophils % (Manual) (40-60) % Band Neutrophils % (0-10) % Lymphocytes % (Manual) (20-40) % Atypical Lymphs % % Monocytes % (Manual) (2-10) % Eosinophils % (Manual) (0.8-7.0) % Basophils % (Manual) (0.2-1.2) Platelet Estimate RBC Morph Comment PT (9.7-12.0) SECONDS INR APTT (22-31) SECONDS Sodium (136-145) mEq/L Potassium (3.5-5.1) mEq/L Chloride (98-107) mEq/L Carbon Dioxide (21-32) mEq/L Anion Gap (5-15) BUN (7-18) mg/dL Creatinine (0.7-1.3) mg/dL Est Cr Clr Drug Dosing mL/min Estimated GFR (MDRD) (>60) mL/min BUN/Creatinine Ratio (14-18) Glucose (74-106) mg/dL Lactic Acid 2.6 H* (0.4-2.0) mmol/L Calcium (8.5-10.1) mg/dL Magnesium (1.8-2.4) mg/dl Total Bilirubin (0.2-1.0) mg/dL GGT (15-85) U/L AST (15-37) U/L ALT (16-63) U/L Alkaline Phosphatase (46-116) U/L C-Reactive Protein (<1.0) mg/dL Total Protein (6.4-8.2) g/dl Albumin (3.4-5.0) g/dl Globulin gm/dL Albumin/Globulin Ratio (1-2) Lipase (73-393) U/L Ketones (0.0-0.3) mM Hepatitis C Antibody (NEGATIVE) Result Diagrams: 08/02/19 09:00 08/02/19 09:00 Sepsis Event Note - Evaluation Sepsis Screening Result: No Definite Risk - Focused Exam Vital Signs: Vital Signs Temp Pulse Resp BP Pulse Ox 08/02/19 09:42 110/75 08/02/19 08:39 36.4 C 132 H 20 123/86 99 Date Exam was Performed: 08/02/19 Time Exam was Performed: 13:31 *Q Meaningful Use (ADM) - VTE Risk Assess *Q Each Risk Factor Represents 1 Point: Age 41 - 59 years Total Score 1 Point Risk Factors: 1 Consult PN Assessment/Plan Procedures: Procedures MR-STAPH DNA AMP PROBE (01/01/19) Problem List Initiated/Reviewed/Updated: Yes Plan: History and exam findings are most consistent with acute alcoholic pancreatitis. CT findings suggestive of hemoperitoneum, which may be related to hemorrhagic pancreatitis vs trauma vs ruptured pseudoaneurysm etc. He appears hemodynamically normal without exam findings suggestive of anemia. Abdomen is not acute. Recommend hospitalist team admission for medical management of pancreatitis; I will be available for reassessment and recommendations as needed. Requesting Provider: Lelia Date Consult Requested: 08/02/19 Reason for Consult: question of hemoperitoneum Patient History Reviewed: Yes Admission H&P Reviewed: Yes
[2019-08-02] MEDS: Dextrose 5%-0.9% NaCl 1,000 ML IV SCH ×2 (13:54→21:23)
[2019-08-02] MEDS ORDERED: Magnesium Sulfate/Water 4 GM in Premix Bag 1 BAG IV ONE (14:00)
[2019-08-02] MEDS ORDERED: Enoxaparin 40 MG/0.4 ML Syringe SUBCUT SCH (14:00)
[2019-08-02] MEDS ORDERED: LORazepam 2 MG/ML SDV IVPUSH PRN (14:01)
[2019-08-02] MEDS ORDERED: traZODone 50 MG Tab PO PRN (21:08)
[2019-08-02] MEDS: Morphine 2 MG/ML SYRINGE IVPUSH PRN (21:39)
[2019-08-02] MEDS: Insulin Lispro 100 Units/ML 3 ML Vial SUBCUT SCH (21:40)
[2019-08-03] MEDS: Dextrose 5%-0.9% NaCl with KCl 1,000 ML IV SCH ×2 (04:09→10:48)
[2019-08-03] MEDS: Insulin Lispro 100 Units/ML 3 ML Vial SUBCUT SCH ×4 (07:33→23:53)
[2019-08-03] MEDS: Morphine 2 MG/ML SYRINGE IVPUSH PRN ×3 (08:22→12:47)
[2019-08-03] MEDS: Potassium Chloride 10 MEQ in Premix Bag 1 BAG IV SCH ×4 (10:49→14:32)
[2019-08-03] MEDS ORDERED: Bisacodyl 10 MG Supp RECTAL ONE (12:16)
--- NOTE | 2019-08-03 12:23 | PCM.CONSN ---
- General Info Date of Service: 08/03/19 Admission Dx/Problem (Free Text): acute pancreatitis Functional Status: Reports: Pain Controlled, Urinating - Review of Systems Gastrointestinal: Reports: Other (less nausea and vomiting. More distended, feels the need to have a bowel movement. Passing some flatus. ) - Patient Data Vitals - Most Recent: Last Vital Signs Temp 36.7 C 08/03/19 08:36 Pulse 101 H 08/03/19 08:36 Resp 18 08/03/19 08:36 BP 148/67 H 08/03/19 08:36 Pulse Ox 100 08/03/19 08:36 Weight - Most Recent: 93.848 kg I&O - Last 24 Hours: Intake & Output 08/02/19 08/03/19 08/03/19 22:59 06:59 14:59 Intake Total 600 1800 Balance 600 1800 Lab Results Last 24 Hours: Laboratory Results - last 24 hr 08/02/19 08/02/19 08/02/19 Range/Units 09:00 09:00 14:42 WBC (4.23-9.07) K/mm3 RBC (4.63-6.08) M/mm3 Hgb (13.7-17.5) gm/dl Hct (40.1-51.0) % MCV (79.0-92.2) fl MCH (25.7-32.2) pg MCHC (32.2-35.5) g/dl RDW Std Deviation (35.1-43.9) fL Plt Count (163-337) K/mm3 MPV (9.4-12.3) fl Neut % (Auto) (34.0-67.9) % Lymph % (Auto) (21.8-53.1) % Arthur % (Auto) (5.3-12.2) % Eos % (Auto) (0.8-7.0) Baso % (Auto) (0.1-1.2) % Neut # (Auto) (1.78-5.38) K/mm3 Lymph # (Auto) (1.32-3.57) K/mm3 Arthur # (Auto) (0.30-0.82) K/mm3 Eos # (Auto) (0.04-0.54) K/mm3 Baso # (Auto) (0.01-0.08) K/mm3 Manual Slide Review Sodium (136-145) mEq/L Potassium (3.5-5.1) mEq/L Chloride (98-107) mEq/L Carbon Dioxide (21-32) mEq/L Anion Gap (5-15) BUN (7-18) mg/dL Creatinine (0.7-1.3) mg/dL Est Cr Clr Drug Dosing mL/min Estimated GFR (MDRD) (>60) mL/min BUN/Creatinine Ratio (14-18) Glucose (74-106) mg/dL POC Glucose (70-105) mg/dL Lactic Acid 1.0 (0.4-2.0) mmol/L Calcium (8.5-10.1) mg/dL Phosphorus 4.8 H (2.6-4.7) mg/dL Magnesium (1.8-2.4) mg/dl Total Bilirubin (0.2-1.0) mg/dL AST (15-37) U/L ALT (16-63) U/L Alkaline Phosphatase (46-116) U/L Lactate Dehydrogenase 219 (85-227) U/L Total Protein (6.4-8.2) g/dl Albumin (3.4-5.0) g/dl Globulin gm/dL Albumin/Globulin Ratio (1-2) Triglycerides 108 (<150) mg/dL Cholesterol 213 H (<200) mg/dL LDL Cholesterol Direct 118 H* (<100) mg/dL HDL Cholesterol 72.0 H (40-59) mg/dL Lipase (73-393) U/L 08/02/19 08/02/19 08/03/19 Range/Units 20:36 21:38 04:58 WBC 21.28 H (4.23-9.07) K/mm3 RBC 3.22 L (4.63-6.08) M/mm3 Hgb 10.8 L D (13.7-17.5) gm/dl Hct 32.1 L (40.1-51.0) % MCV 99.7 H (79.0-92.2) fl MCH 33.5 H (25.7-32.2) pg MCHC 33.6 (32.2-35.5) g/dl RDW Std Deviation 42.7 (35.1-43.9) fL Plt Count 273 (163-337) K/mm3 MPV 9.6 (9.4-12.3) fl Neut % (Auto) 82.4 H (34.0-67.9) % Lymph % (Auto) 7.8 L (21.8-53.1) % Arthur % (Auto) 8.7 (5.3-12.2) % Eos % (Auto) 0.3 L (0.8-7.0) Baso % (Auto) 0.1 (0.1-1.2) % Neut # (Auto) 17.54 H (1.78-5.38) K/mm3 Lymph # (Auto) 1.65 (1.32-3.57) K/mm3 Arthur # (Auto) 1.85 H (0.30-0.82) K/mm3 Eos # (Auto) 0.07 (0.04-0.54) K/mm3 Baso # (Auto) 0.02 (0.01-0.08) K/mm3 Manual Slide Review Abnormal smear Sodium 138 (136-145) mEq/L Potassium 3.1 L (3.5-5.1) mEq/L Chloride 103 (98-107) mEq/L Carbon Dioxide 28 (21-32) mEq/L Anion Gap 10.1 (5-15) BUN 13 (7-18) mg/dL Creatinine 0.6 L (0.7-1.3) mg/dL Est Cr Clr Drug Dosing 167.44 mL/min Estimated GFR (MDRD) > 60 (>60) mL/min BUN/Creatinine Ratio 21.7 H (14-18) Glucose 130 H (74-106) mg/dL POC Glucose 138 H (70-105) mg/dL Lactic Acid (0.4-2.0) mmol/L Calcium 8.0 L (8.5-10.1) mg/dL Phosphorus (2.6-4.7) mg/dL Magnesium 2.2 (1.8-2.4) mg/dl Total Bilirubin 0.5 (0.2-1.0) mg/dL AST 14 L (15-37) U/L ALT 24 (16-63) U/L Alkaline Phosphatase 44 L (46-116) U/L Lactate Dehydrogenase (85-227) U/L Total Protein 5.9 L (6.4-8.2) g/dl Albumin 2.9 L (3.4-5.0) g/dl Globulin 3.0 gm/dL Albumin/Globulin Ratio 1.0 (1-2) Triglycerides (<150) mg/dL Cholesterol (<200) mg/dL LDL Cholesterol Direct (<100) mg/dL HDL Cholesterol (40-59) mg/dL Lipase 419 H (73-393) U/L 08/03/19 08/03/19 08/03/19 Range/Units 04:58 05:43 11:28 WBC 17.10 H (4.23-9.07) K/mm3 RBC 2.82 L (4.63-6.08) M/mm3 Hgb 9.4 L (13.7-17.5) gm/dl Hct 28.7 L (40.1-51.0) % MCV 101.8 H (79.0-92.2) fl MCH 33.3 H (25.7-32.2) pg MCHC 32.8 (32.2-35.5) g/dl RDW Std Deviation 43.0 (35.1-43.9) fL Plt Count 148 L D (163-337) K/mm3 MPV 10.6 (9.4-12.3) fl Neut % (Auto) 80.5 H (34.0-67.9) % Lymph % (Auto) 8.9 L (21.8-53.1) % Arthur % (Auto) 9.5 (5.3-12.2) % Eos % (Auto) 0.5 L (0.8-7.0) Baso % (Auto) 0.1 (0.1-1.2) % Neut # (Auto) 13.75 H (1.78-5.38) K/mm3 Lymph # (Auto) 1.53 (1.32-3.57) K/mm3 Arthur # (Auto) 1.63 H (0.30-0.82) K/mm3 Eos # (Auto) 0.08 (0.04-0.54) K/mm3 Baso # (Auto) 0.02 (0.01-0.08) K/mm3 Manual Slide Review Abnormal smear Sodium (136-145) mEq/L Potassium (3.5-5.1) mEq/L Chloride (98-107) mEq/L Carbon Dioxide (21-32) mEq/L Anion Gap (5-15) BUN (7-18) mg/dL Creatinine (0.7-1.3) mg/dL Est Cr Clr Drug Dosing mL/min Estimated GFR (MDRD) (>60) mL/min BUN/Creatinine Ratio (14-18) Glucose (74-106) mg/dL POC Glucose 127 H 116 H (70-105) mg/dL Lactic Acid (0.4-2.0) mmol/L Calcium (8.5-10.1) mg/dL Phosphorus (2.6-4.7) mg/dL Magnesium (1.8-2.4) mg/dl Total Bilirubin (0.2-1.0) mg/dL AST (15-37) U/L ALT (16-63) U/L Alkaline Phosphatase (46-116) U/L Lactate Dehydrogenase (85-227) U/L Total Protein (6.4-8.2) g/dl Albumin (3.4-5.0) g/dl Globulin gm/dL Albumin/Globulin Ratio (1-2) Triglycerides (<150) mg/dL Cholesterol (<200) mg/dL LDL Cholesterol Direct (<100) mg/dL HDL Cholesterol (40-59) mg/dL Lipase (73-393) U/L Vladimir Results Last 24 Hours: Microbiology 08/02/19 09:28 Aerobic Blood Culture - Preliminary Blood - Venous NO GROWTH AFTER 1 DAY Anaerobic Blood Culture - Preliminary NO GROWTH AFTER 1 DAY 08/02/19 09:35 Aerobic Blood Culture - Preliminary Blood - Venous - Lab Draw NO GROWTH AFTER 1 DAY Anaerobic Blood Culture - Preliminary NO GROWTH AFTER 1 DAY Med Orders - Current: Current Medications Acetaminophen (Tylenol) 650 mg PO Q4H PRN PRN Reason: Pain (Mild 1-3)/fever Potassium Chloride/Dextrose/Sod Cl (D5 Ns With 20 Meq Kcl) 1,000 mls @ 150 mls/ hr IV ASDIRECTED AZUL Last Admin: 08/03/19 10:48 Dose: 150 mls/hr Potassium Chloride 10 meq/ (Premix) 100 mls @ 100 mls/hr IV Q1H AZUL Stop: 08/03/19 12:59 Last Admin: 08/03/19 11:59 Dose: 100 mls/hr Insulin Human Lispro (Humalog) 0 unit SUBCUT QIDACANDBED [facility]; Protocol Last Admin: 08/03/19 11:33 Dose: Not Given Lorazepam (Ativan) 0 mg IVPUSH Q4H PRN; Protocol PRN Reason: withdrawl Morphine Sulfate (Morphine) 2 mg IVPUSH Q2H PRN PRN Reason: Pain (severe 7-10) Stop: 08/03/19 13:04 Last Admin: 08/03/19 10:47 Dose: 2 mg Ondansetron HCl (Zofran Odt) 4 mg PO Q6H PRN PRN Reason: nausea, able to take PO Ondansetron HCl (Zofran) 4 mg IV Q6H PRN PRN Reason: Nausea/Vomiting Carisoprodol [Soma] (350 Mg) 0 each PO BID [facility] Last Admin: 08/03/19 11:23 Dose: Not Given Meloxicam 15 Mg 0 each PO DAILY [facility] Last Admin: 08/03/19 11:23 Dose: Not Given Sodium Chloride (Saline Flush) 10 ml FLUSH ONETIME PRN PRN Reason: IV FLUSH Last Admin: 08/02/19 10:27 Dose: 10 ml Trazodone HCl (Trazodone) 50 mg PO DAILY PRN PRN Reason: Insomnia Last Admin: 08/02/19 23:54 Dose: 50 mg Discontinued Medications Enoxaparin Sodium (Lovenox) 40 mg SUBCUT Q24H [facility] Hydromorphone HCl (Dilaudid) 0.5 mg IVPUSH ONETIME ONE Stop: 08/02/19 08:52 Last Admin: 08/02/19 09:04 Dose: 0.5 mg Hydromorphone HCl (Dilaudid) 0.5 mg IVPUSH ONETIME ONE Stop: 08/02/19 09:59 Last Admin: 08/02/19 10:05 Dose: 0.5 mg Hydromorphone HCl (Dilaudid) 0.5 mg IVPUSH ONETIME ONE Stop: 08/02/19 11:51 Last Admin: 08/02/19 11:56 Dose: 0.5 mg Dextrose/Lactated Ringer's (Dextrose 5%-Lactated Ringers) 1,000 mls @ 999 mls/ hr IV ASDIRECTED [facility] Last Admin: 08/02/19 09:04 Dose: 999 mls/hr Dextrose/Lactated Ringer's (Dextrose 5%-Lactated Ringers) 1,000 mls @ 500 mls/ hr IV ASDIRECTED [facility] Last Admin: 08/02/19 10:13 Dose: 500 mls/hr Dextrose/Sodium Chloride (Dextrose 5%-Normal Saline) 1,000 mls @ 150 mls/hr IV ASDIRECTED [facility] Stop: 08/03/19 19:54 Last Admin: 08/02/19 21:23 Dose: 150 mls/hr Magnesium Sulfate 4 gm/ Premix 50 mls @ 12.5 mls/hr IV ONETIME ONE Stop: 08/02/19 17:59 Last Admin: 08/02/19 13:54 Dose: 12.5 mls/hr Iopamidol (Isovue-370 (76%)) 100 ml IVPUSH ONETIME ONE Stop: 08/02/19 10:13 Last Admin: 08/02/19 10:26 Dose: 100 ml Ketorolac Tromethamine (Toradol) 30 mg IV Q6H PRN PRN Reason: Pain (moderate 4-6) Metoclopramide HCl (Reglan) 10 mg IVPUSH ONETIME ONE Stop: 08/02/19 08:52 Last Admin: 08/02/19 09:04 Dose: 10 mg - Exam General: Alert, Oriented, Cooperative Lungs: Normal Respiratory Effort Cardiovascular: Other (sinus tachycardia, 100s) GI/Abdominal Exam: Other (distended, tympanic to percussion, unlike yesterday. Mild tenderness. No rigidity. ) Extremities: Other (warm, well perfused, good cap refill) Skin: Warm, Dry Psy/Mental Status: Normal Mood Sepsis Event Note - Evaluation Sepsis Screening Result: No Definite Risk - Focused Exam Vital Signs: Vital Signs Temp Pulse Resp BP Pulse Ox 08/03/19 08:36 36.7 C 101 H 18 148/67 H 100 08/03/19 03:38 36.7 C 104 H 16 142/86 H 97 Date Exam was Performed: 08/03/19 Time Exam was Performed: 12:17 Consult PN Assessment/Plan Procedures: Procedures MR-STAPH DNA AMP PROBE (01/01/19) Problem List Initiated/Reviewed/Updated: Yes My Orders Last 24 Hours: My Active Orders 08/03/19 12:16 bisacodyL [Dulcolax] 10 mg RECTAL ONETIME ONE Plan: Trial dulcolax suppository. Recommend repeat CBC this afternoon to assess degree of any ongoing hemorrhage. If there is concern for active bleeding, I recommend the patient be prepared for transfusion and for transfer to a facility with interventional radiology should he require embolization. He has been hemodynamically stable and does not appear to show physical findings of hemorrhage or anemia. His abdomen seems more distended as a result of gas. Currently I believe he is appropriate to stay here for ongoing management of pancreatitis. If CBC results are reassuring I think it is reasonable to slowly advance diet, starting with clear liquids, later today.
--- NOTE | 2019-08-03 13:13 | PCM.PN ---
- General Info Date of Service: 08/03/19 Admission Dx/Problem (Free Text): acute pancreatitis Subjective Update: Hieu states that his abdomen feels more distended today and he feels constipated. Hemoglobin did drop to 9.4 today. He is moving air. Functional Status: Denies: Pain Controlled - Review of Systems General: Reports: No Symptoms HEENT: Reports: No Symptoms Pulmonary: Reports: No Symptoms Cardiovascular: Reports: No Symptoms Gastrointestinal: Reports: Abdominal Pain, Constipation - Patient Data Vitals - Most Recent: Last Vital Signs Temp 98.2 F 08/03/19 11:29 Pulse 95 08/03/19 11:29 Resp 18 08/03/19 11:29 BP 147/92 H 08/03/19 11:29 Pulse Ox 98 08/03/19 11:29 Weight - Most Recent: 206 lb 14.4 oz I&O - Last 24 Hours: Intake & Output 08/02/19 08/03/19 08/03/19 22:59 06:59 14:59 Intake Total 600 1800 Balance 600 1800 Lab Results Last 24 Hours: Laboratory Results - last 24 hr 08/02/19 08/02/19 08/02/19 Range/Units 09:00 09:00 14:42 WBC (4.23-9.07) K/mm3 RBC (4.63-6.08) M/mm3 Hgb (13.7-17.5) gm/dl Hct (40.1-51.0) % MCV (79.0-92.2) fl MCH (25.7-32.2) pg MCHC (32.2-35.5) g/dl RDW Std Deviation (35.1-43.9) fL Plt Count (163-337) K/mm3 MPV (9.4-12.3) fl Neut % (Auto) (34.0-67.9) % Lymph % (Auto) (21.8-53.1) % [place] % (Auto) (5.3-12.2) % Eos % (Auto) (0.8-7.0) Baso % (Auto) (0.1-1.2) % Neut # (Auto) (1.78-5.38) K/mm3 Lymph # (Auto) (1.32-3.57) K/mm3 [place] # (Auto) (0.30-0.82) K/mm3 Eos # (Auto) (0.04-0.54) K/mm3 Baso # (Auto) (0.01-0.08) K/mm3 Manual Slide Review Sodium (136-145) mEq/L Potassium (3.5-5.1) mEq/L Chloride (98-107) mEq/L Carbon Dioxide (21-32) mEq/L Anion Gap (5-15) BUN (7-18) mg/dL Creatinine (0.7-1.3) mg/dL Est Cr Clr Drug Dosing mL/min Estimated GFR (MDRD) (>60) mL/min BUN/Creatinine Ratio (14-18) Glucose (74-106) mg/dL POC Glucose (70-105) mg/dL Lactic Acid 1.0 (0.4-2.0) mmol/L Calcium (8.5-10.1) mg/dL Phosphorus 4.8 H (2.6-4.7) mg/dL Magnesium (1.8-2.4) mg/dl Total Bilirubin (0.2-1.0) mg/dL AST (15-37) U/L ALT (16-63) U/L Alkaline Phosphatase (46-116) U/L Lactate Dehydrogenase 219 (85-227) U/L Total Protein (6.4-8.2) g/dl Albumin (3.4-5.0) g/dl Globulin gm/dL Albumin/Globulin Ratio (1-2) Triglycerides 108 (<150) mg/dL Cholesterol 213 H (<200) mg/dL LDL Cholesterol Direct 118 H* (<100) mg/dL HDL Cholesterol 72.0 H (40-59) mg/dL Lipase (73-393) U/L 08/02/19 08/02/19 08/03/19 Range/Units 20:36 21:38 04:58 WBC 21.28 H (4.23-9.07) K/mm3 RBC 3.22 L (4.63-6.08) M/mm3 Hgb 10.8 L D (13.7-17.5) gm/dl Hct 32.1 L (40.1-51.0) % MCV 99.7 H (79.0-92.2) fl MCH 33.5 H (25.7-32.2) pg MCHC 33.6 (32.2-35.5) g/dl RDW Std Deviation 42.7 (35.1-43.9) fL Plt Count 273 (163-337) K/mm3 MPV 9.6 (9.4-12.3) fl Neut % (Auto) 82.4 H (34.0-67.9) % Lymph % (Auto) 7.8 L (21.8-53.1) % [place] % (Auto) 8.7 (5.3-12.2) % Eos % (Auto) 0.3 L (0.8-7.0) Baso % (Auto) 0.1 (0.1-1.2) % Neut # (Auto) 17.54 H (1.78-5.38) K/mm3 Lymph # (Auto) 1.65 (1.32-3.57) K/mm3 [place] # (Auto) 1.85 H (0.30-0.82) K/mm3 Eos # (Auto) 0.07 (0.04-0.54) K/mm3 Baso # (Auto) 0.02 (0.01-0.08) K/mm3 Manual Slide Review Abnormal smear Sodium 138 (136-145) mEq/L Potassium 3.1 L (3.5-5.1) mEq/L Chloride 103 (98-107) mEq/L Carbon Dioxide 28 (21-32) mEq/L Anion Gap 10.1 (5-15) BUN 13 (7-18) mg/dL Creatinine 0.6 L (0.7-1.3) mg/dL Est Cr Clr Drug Dosing 167.44 mL/min Estimated GFR (MDRD) > 60 (>60) mL/min BUN/Creatinine Ratio 21.7 H (14-18) Glucose 130 H (74-106) mg/dL POC Glucose 138 H (70-105) mg/dL Lactic Acid (0.4-2.0) mmol/L Calcium 8.0 L (8.5-10.1) mg/dL Phosphorus (2.6-4.7) mg/dL Magnesium 2.2 (1.8-2.4) mg/dl Total Bilirubin 0.5 (0.2-1.0) mg/dL AST 14 L (15-37) U/L ALT 24 (16-63) U/L Alkaline Phosphatase 44 L (46-116) U/L Lactate Dehydrogenase (85-227) U/L Total Protein 5.9 L (6.4-8.2) g/dl Albumin 2.9 L (3.4-5.0) g/dl Globulin 3.0 gm/dL Albumin/Globulin Ratio 1.0 (1-2) Triglycerides (<150) mg/dL Cholesterol (<200) mg/dL LDL Cholesterol Direct (<100) mg/dL HDL Cholesterol (40-59) mg/dL Lipase 419 H (73-393) U/L 08/03/19 08/03/19 08/03/19 Range/Units 04:58 05:43 11:28 WBC 17.10 H (4.23-9.07) K/mm3 RBC 2.82 L (4.63-6.08) M/mm3 Hgb 9.4 L (13.7-17.5) gm/dl Hct 28.7 L (40.1-51.0) % MCV 101.8 H (79.0-92.2) fl MCH 33.3 H (25.7-32.2) pg MCHC 32.8 (32.2-35.5) g/dl RDW Std Deviation 43.0 (35.1-43.9) fL Plt Count 148 L D (163-337) K/mm3 MPV 10.6 (9.4-12.3) fl Neut % (Auto) 80.5 H (34.0-67.9) % Lymph % (Auto) 8.9 L (21.8-53.1) % [place] % (Auto) 9.5 (5.3-12.2) % Eos % (Auto) 0.5 L (0.8-7.0) Baso % (Auto) 0.1 (0.1-1.2) % Neut # (Auto) 13.75 H (1.78-5.38) K/mm3 Lymph # (Auto) 1.53 (1.32-3.57) K/mm3 [place] # (Auto) 1.63 H (0.30-0.82) K/mm3 Eos # (Auto) 0.08 (0.04-0.54) K/mm3 Baso # (Auto) 0.02 (0.01-0.08) K/mm3 Manual Slide Review Abnormal smear Sodium (136-145) mEq/L Potassium (3.5-5.1) mEq/L Chloride (98-107) mEq/L Carbon Dioxide (21-32) mEq/L Anion Gap (5-15) BUN (7-18) mg/dL Creatinine (0.7-1.3) mg/dL Est Cr Clr Drug Dosing mL/min Estimated GFR (MDRD) (>60) mL/min BUN/Creatinine Ratio (14-18) Glucose (74-106) mg/dL POC Glucose 127 H 116 H (70-105) mg/dL Lactic Acid (0.4-2.0) mmol/L Calcium (8.5-10.1) mg/dL Phosphorus (2.6-4.7) mg/dL Magnesium (1.8-2.4) mg/dl Total Bilirubin (0.2-1.0) mg/dL AST (15-37) U/L ALT (16-63) U/L Alkaline Phosphatase (46-116) U/L Lactate Dehydrogenase (85-227) U/L Total Protein (6.4-8.2) g/dl Albumin (3.4-5.0) g/dl Globulin gm/dL Albumin/Globulin Ratio (1-2) Triglycerides (<150) mg/dL Cholesterol (<200) mg/dL LDL Cholesterol Direct (<100) mg/dL HDL Cholesterol (40-59) mg/dL Lipase (73-393) U/L Vladimir Results Last 24 Hours: Microbiology 08/02/19 09:28 Aerobic Blood Culture - Preliminary Blood - Venous NO GROWTH AFTER 1 DAY Anaerobic Blood Culture - Preliminary NO GROWTH AFTER 1 DAY 08/02/19 09:35 Aerobic Blood Culture - Preliminary Blood - Venous - Lab Draw NO GROWTH AFTER 1 DAY Anaerobic Blood Culture - Preliminary NO GROWTH AFTER 1 DAY Med Orders - Current: Current Medications Acetaminophen (Tylenol) 650 mg PO Q4H PRN PRN Reason: Pain (Mild 1-3)/fever Potassium Chloride/Dextrose/Sod Cl (D5 Ns With 20 Meq Kcl) 1,000 mls @ 150 mls/ hr IV ASDIRECTED [facility] Last Admin: 08/03/19 10:48 Dose: 150 mls/hr Insulin Human Lispro (Humalog) 0 unit SUBCUT QIDACANDBED [facility]; Protocol Last Admin: 08/03/19 11:33 Dose: Not Given Lorazepam (Ativan) 0 mg IVPUSH Q4H PRN; Protocol PRN Reason: withdrawl Ondansetron HCl (Zofran Odt) 4 mg PO Q6H PRN PRN Reason: nausea, able to take PO Ondansetron HCl (Zofran) 4 mg IV Q6H PRN PRN Reason: Nausea/Vomiting Carisoprodol [Soma] (350 Mg) 0 each PO BID [facility] Last Admin: 08/03/19 11:23 Dose: Not Given Meloxicam 15 Mg 0 each PO DAILY [facility] Last Admin: 08/03/19 11:23 Dose: Not Given Sodium Chloride (Saline Flush) 10 ml FLUSH ONETIME PRN PRN Reason: IV FLUSH Last Admin: 08/02/19 10:27 Dose: 10 ml Trazodone HCl (Trazodone) 50 mg PO DAILY PRN PRN Reason: Insomnia Last Admin: 08/02/19 23:54 Dose: 50 mg Discontinued Medications Bisacodyl (Dulcolax) 10 mg RECTAL ONETIME ONE Stop: 08/03/19 12:17 Last Admin: 08/03/19 12:42 Dose: 10 mg Enoxaparin Sodium (Lovenox) 40 mg SUBCUT Q24H [facility] Hydromorphone HCl (Dilaudid) 0.5 mg IVPUSH ONETIME ONE Stop: 08/02/19 08:52 Last Admin: 08/02/19 09:04 Dose: 0.5 mg Hydromorphone HCl (Dilaudid) 0.5 mg IVPUSH ONETIME ONE Stop: 08/02/19 09:59 Last Admin: 08/02/19 10:05 Dose: 0.5 mg Hydromorphone HCl (Dilaudid) 0.5 mg IVPUSH ONETIME ONE Stop: 08/02/19 11:51 Last Admin: 08/02/19 11:56 Dose: 0.5 mg Dextrose/Lactated Ringer's (Dextrose 5%-Lactated Ringers) 1,000 mls @ 999 mls/ hr IV ASDIRECTED [facility] Last Admin: 08/02/19 09:04 Dose: 999 mls/hr Dextrose/Lactated Ringer's (Dextrose 5%-Lactated Ringers) 1,000 mls @ 500 mls/ hr IV ASDIRECTED [facility] Last Admin: 08/02/19 10:13 Dose: 500 mls/hr Dextrose/Sodium Chloride (Dextrose 5%-Normal Saline) 1,000 mls @ 150 mls/hr IV ASDIRECTED [facility] Stop: 08/03/19 19:54 Last Admin: 08/02/19 21:23 Dose: 150 mls/hr Magnesium Sulfate 4 gm/ Premix 50 mls @ 12.5 mls/hr IV ONETIME ONE Stop: 08/02/19 17:59 Last Admin: 08/02/19 13:54 Dose: 12.5 mls/hr Potassium Chloride 10 meq/ (Premix) 100 mls @ 100 mls/hr IV Q1H [facility] Stop: 08/03/19 12:59 Last Admin: 08/03/19 11:59 Dose: 100 mls/hr Iopamidol (Isovue-370 (76%)) 100 ml IVPUSH ONETIME ONE Stop: 08/02/19 10:13 Last Admin: 08/02/19 10:26 Dose: 100 ml Ketorolac Tromethamine (Toradol) 30 mg IV Q6H PRN PRN Reason: Pain (moderate 4-6) Metoclopramide HCl (Reglan) 10 mg IVPUSH ONETIME ONE Stop: 08/02/19 08:52 Last Admin: 08/02/19 09:04 Dose: 10 mg Morphine Sulfate (Morphine) 2 mg IVPUSH Q2H PRN PRN Reason: Pain (severe 7-10) Stop: 08/03/19 13:04 Last Admin: 08/03/19 12:47 Dose: 2 mg - Exam General: Alert, Oriented HEENT: Pupils Equal, Mucous Membr. Moist/[place] Neck: Supple Lungs: Clear to Auscultation, Normal Respiratory Effort Cardiovascular: Regular Rate, Regular Rhythm GI/Abdominal Exam: Soft, Distended, Tender (Mild epigastric tenderness). No: Normal Bowel Sounds (Decreased) Extremities: Normal Inspection, No Pedal Edema Skin: Warm, Dry, Intact Psy/Mental Status: Alert, Normal Affect, Normal Mood Sepsis Event Note - Evaluation Sepsis Screening Result: No Definite Risk - Focused Exam Vital Signs: Vital Signs Temp Pulse Resp BP Pulse Ox 08/03/19 11:29 98.2 F 95 18 147/92 H 98 08/03/19 08:36 98.1 F 101 H 18 148/67 H 100 08/03/19 03:38 98.1 F 104 H 16 142/86 H 97 Date Exam was Performed: 08/03/19 Time Exam was Performed: 15:47 - Problem List Review Problem List Initiated/Reviewed/Updated: Yes - My Orders Last 24 Hours: My Active Orders 08/02/19 21:08 traZODone 50 mg PO DAILY PRN 08/02/19 21:30 Dextrose 5%-0.9% NaCl with KCl [D5 NS with 20 mEq KCl] 1,000 ml IV ASDIRECTED 08/02/19 22:00 Insulin Lispro [HumaLOG] See Protocol SUBCUT QIDACANDBED 08/03/19 15:00 HEMOGLOBIN/HEMATOCRIT,HH [HEME] Routine - Plan Plan:: Pancreatitis Elevated lactic acid level Hypovolemia Orthostatic hypotension Nausea & vomiting Ascites Leukocytosis Hyperbilirubinemia Hypomagnesemia -resolved Hypokalemia Abnormal CT scan High anion gap metabolic acidosis Reports abdominal pain that began around July 28 Nausea and vomiting began July 29 Unable to keep anything down Has had diarrhea as well Denies hematochezia, hematemesis Lab abnormalities likely 2/2 hypovolemia 2/2 vomiting and poor oral intake CT scan shows: -Fluid within pelvis with Hounsfield unit measurement of blood -Questionable mild pancreatitis -Low density lesion in right kidney - recommend nonemergent MRI to further evaluate -Fatty infiltration within the liver Dr. Gallegos, general surgery consulted in ED Magnesium 1.6-->2.2 Lactic acid 2.6 - likely elevate due to hypovolemia and not infectious process - Blood cultures obtained in ED CRP WNL Leukocytosis 2/2 hypovolemia and mild pancreatitis 2L IV fluids given in ED Lipase 2256 No signs of cholelithiasis - Liver enzymes normal, GGT normal PLAN - NPO -advance to clear fluids if hemoglobin and pain is improved - IV fluids as ordered - Blood glucose checks Q6Hr - Repeat lipase, CBC, CMP, Magnesium in AM - No obvious need for antibiotics as this time - Lipid panel ordered -Potassium chloride 40 mEq IV - Antiemetics as ordered - Atif's criteria: Inital - 2 pts. 1% predicted mortality rate - Pain medications as ordered - Repeat hemoglobin this afternoon History of alcohol use Reports he drinks heavily when off work and abstains from ETOH when working Last reported drink was Monday Denies any problems with detox or seizures in the past Unlikely to have alcohol withdrawal given reported last drink was 5 days prior to admission No signs of withdrawal PLAN - CIWA protocol - Ativan as needed - ETOH counseling - SW consult - Pancreatitis above likely induced by ETOH use Chronic neck pain History of cervical fracture Chronic, continuous use of opioids On home Percocet, meloxicam, and Soma PLAN - Continue meloxicam and soma - Monitor for worsening of symptoms - PRN pain medications as ordered DVT prophylaxis: VTE score of 1 - not indicated GI prophylaxis: Not indicated PCP: Dr. Minor Code status: Full code Disposition: Patient will be admitted for IV fluids, monitoring, and management of pancreatitis - likely ETOH induced. LOS likely 4 days. Prognosis: Guarded Recommend outpatient MRI of abdomen to evaluate right kidney lesion - unable to obtain MRI over weekend at our facility.
[2019-08-03] MEDS: HYDROmorphone 0.5 MG/0.5 ML Syringe IVPUSH PRN ×3 (15:14→20:34)
[2019-08-03] MEDS: D5 1/2 NS w/ 20 mEq/L KCl 1,000 ML IV SCH (17:46)
[2019-08-04] MEDS: HYDROmorphone 0.5 MG/0.5 ML Syringe IVPUSH PRN ×5 (04:13→23:57)
[2019-08-04] MEDS: D5 1/2 NS w/ 20 mEq/L KCl 1,000 ML IV SCH (05:53)
[2019-08-04] MEDS: Potassium Chloride 10 MEQ in Premix Bag 1 BAG IV SCH ×4 (08:53→12:11)
--- NOTE | 2019-08-04 09:45 | PCM.SN.2 ---
- Free Text/Narrative Note: Acute pancreatitis with concern for intra-abdominal hemorrhage. Hospital day 3. S: feeling better. Had 3 BMs with suppository, passing flatus, tolerating clears. O: AF-VSS Hgb 8.6 g/dL from 8.9 g/dL in about 14 hours Awake and alert, no distress Abdomen distended, tympanitic, minimally tender A: Hemorrhagic pancreatitis, with stable vitals, exam and labs. Clinically improved , tolerating clear liquids. P: Recheck CBC in 24 hrs Advance to regular diet May be ready for discharge to home as early as tomorrow if continuing to improve
[2019-08-04] MEDS: Polyethylene Glycol 3350 Powder 17 GM Packet PO SCH (10:03)
[2019-08-04] MEDS: Docusate Sodium 100 MG Cap PO SCH (10:03)
--- NOTE | 2019-08-04 11:48 | PCM.PN ---
- General Info Date of Service: 08/04/19 Admission Dx/Problem (Free Text): acute pancreatitis Subjective Update: Patient is improving and tolerated clear liquids last night. Hemoglobin has dropped a little from 8.9-8.6. He states he is moving air and his abdomen is less tense. Functional Status: Reports: Pain Controlled - Review of Systems General: Reports: No Symptoms HEENT: Reports: No Symptoms Pulmonary: Reports: No Symptoms Cardiovascular: Reports: No Symptoms Gastrointestinal: Reports: Abdominal Pain (Mild epigastric). Denies: Constipation, Nausea, Vomiting Musculoskeletal: Reports: No Symptoms Skin: Reports: No Symptoms Neurological: Reports: No Symptoms Psychiatric: Reports: No Symptoms - Patient Data Vitals - Most Recent: Last Vital Signs Temp 98.1 F 08/04/19 08:17 Pulse 88 08/04/19 08:17 Resp 20 08/04/19 08:17 BP 158/87 H 08/04/19 08:17 Pulse Ox 98 08/04/19 08:17 Weight - Most Recent: 207 lb 8 oz I&O - Last 24 Hours: Intake & Output 08/03/19 08/04/19 08/04/19 22:59 06:59 14:59 Intake Total 2793 1336 240 Output Total 800 1500 Balance 1992 - Lab Results Last 24 Hours: Laboratory Results - last 24 hr 08/03/19 08/03/19 08/03/19 Range/Units 11:28 15:10 16:45 WBC (4.23-9.07) K/mm3 RBC (4.63-6.08) M/mm3 Hgb 8.9 L (13.7-17.5) gm/dl Hct 27.2 L (40.1-51.0) % MCV (79.0-92.2) fl MCH (25.7-32.2) pg MCHC (32.2-35.5) g/dl RDW Std Deviation (35.1-43.9) fL Plt Count (163-337) K/mm3 MPV (9.4-12.3) fl Neut % (Auto) (34.0-67.9) % Lymph % (Auto) (21.8-53.1) % Millard % (Auto) (5.3-12.2) % Eos % (Auto) (0.8-7.0) Baso % (Auto) (0.1-1.2) % Neut # (Auto) (1.78-5.38) K/mm3 Lymph # (Auto) (1.32-3.57) K/mm3 Millard # (Auto) (0.30-0.82) K/mm3 Eos # (Auto) (0.04-0.54) K/mm3 Baso # (Auto) (0.01-0.08) K/mm3 Manual Slide Review Sodium (136-145) mEq/L Potassium (3.5-5.1) mEq/L Chloride (98-107) mEq/L Carbon Dioxide (21-32) mEq/L Anion Gap (5-15) BUN (7-18) mg/dL Creatinine (0.7-1.3) mg/dL Est Cr Clr Drug Dosing mL/min Estimated GFR (MDRD) (>60) mL/min BUN/Creatinine Ratio (14-18) Glucose (74-106) mg/dL POC Glucose 116 H 84 (70-105) mg/dL Calcium (8.5-10.1) mg/dL Magnesium (1.8-2.4) mg/dl Total Bilirubin (0.2-1.0) mg/dL AST (15-37) U/L ALT (16-63) U/L Alkaline Phosphatase (46-116) U/L Total Protein (6.4-8.2) g/dl Albumin (3.4-5.0) g/dl Globulin gm/dL Albumin/Globulin Ratio (1-2) 08/04/19 08/04/19 Range/Units 05:11 05:11 WBC 13.21 H (4.23-9.07) K/mm3 RBC 2.56 L (4.63-6.08) M/mm3 Hgb 8.6 L (13.7-17.5) gm/dl Hct 26.4 L (40.1-51.0) % MCV 103.1 H (79.0-92.2) fl MCH 33.6 H (25.7-32.2) pg MCHC 32.6 (32.2-35.5) g/dl RDW Std Deviation 42.7 (35.1-43.9) fL Plt Count 207 (163-337) K/mm3 MPV 9.8 (9.4-12.3) fl Neut % (Auto) 77.7 H (34.0-67.9) % Lymph % (Auto) 9.3 L (21.8-53.1) % Millard % (Auto) 10.7 (5.3-12.2) % Eos % (Auto) 1.6 (0.8-7.0) Baso % (Auto) 0.2 (0.1-1.2) % Neut # (Auto) 10.28 H (1.78-5.38) K/mm3 Lymph # (Auto) 1.23 L (1.32-3.57) K/mm3 Millard # (Auto) 1.41 H (0.30-0.82) K/mm3 Eos # (Auto) 0.21 (0.04-0.54) K/mm3 Baso # (Auto) 0.02 (0.01-0.08) K/mm3 Manual Slide Review Abnormal smear Sodium 136 (136-145) mEq/L Potassium 3.4 L (3.5-5.1) mEq/L Chloride 101 (98-107) mEq/L Carbon Dioxide 25 (21-32) mEq/L Anion Gap 13.4 (5-15) BUN 7 (7-18) mg/dL Creatinine 0.6 L (0.7-1.3) mg/dL Est Cr Clr Drug Dosing 167.44 mL/min Estimated GFR (MDRD) > 60 (>60) mL/min BUN/Creatinine Ratio 11.7 L (14-18) Glucose 113 H (74-106) mg/dL POC Glucose (70-105) mg/dL Calcium 7.8 L (8.5-10.1) mg/dL Magnesium 2.0 (1.8-2.4) mg/dl Total Bilirubin 0.6 (0.2-1.0) mg/dL AST 14 L (15-37) U/L ALT 22 (16-63) U/L Alkaline Phosphatase 49 (46-116) U/L Total Protein 6.4 (6.4-8.2) g/dl Albumin 2.9 L (3.4-5.0) g/dl Globulin 3.5 gm/dL Albumin/Globulin Ratio 0.8 L (1-2) Vladimir Results Last 24 Hours: Microbiology 08/02/19 09:35 Aerobic Blood Culture - Preliminary Blood - Venous - Lab Draw NO GROWTH AFTER 2 DAYS Anaerobic Blood Culture - Preliminary NO GROWTH AFTER 2 DAYS 08/02/19 09:28 Aerobic Blood Culture - Preliminary Blood - Venous NO GROWTH AFTER 2 DAYS Anaerobic Blood Culture - Preliminary NO GROWTH AFTER 2 DAYS Med Orders - Current: Current Medications Acetaminophen (Tylenol) 650 mg PO Q4H PRN PRN Reason: Pain (Mild 1-3)/fever Docusate Sodium (Colace) 100 mg PO DAILY [facility] Last Admin: 08/04/19 10:03 Dose: 100 mg Hydromorphone HCl (Dilaudid) 0.5 mg IVPUSH Q2H PRN PRN Reason: Pain (severe 7-10) Last Admin: 08/04/19 08:51 Dose: 0.5 mg Potassium Chloride/Dextrose/Sod Cl (D5 1/2 Ns W/ 20 Meq/L Kcl) 1,000 mls @ 75 mls/hr IV ASDIRECTED [facility] Last Admin: 08/04/19 05:53 Dose: 75 mls/hr Potassium Chloride 10 meq/ (Premix) 100 mls @ 100 mls/hr IV Q1H [facility] Stop: 08/04/19 12:14 Last Admin: 08/04/19 10:59 Dose: 100 mls/hr Lorazepam (Ativan) 0 mg IVPUSH Q4H PRN; Protocol PRN Reason: withdrawl Ondansetron HCl (Zofran Odt) 4 mg PO Q6H PRN PRN Reason: nausea, able to take PO Ondansetron HCl (Zofran) 4 mg IV Q6H PRN PRN Reason: Nausea/Vomiting Carisoprodol [Soma] (350 Mg) 0 each PO BID [facility] Last Admin: 08/04/19 10:03 Dose: Not Given Meloxicam 15 Mg 0 each PO DAILY [facility] Last Admin: 08/04/19 10:04 Dose: Not Given Polyethylene Glycol (Miralax) 17 gm PO DAILY [facility] Last Admin: 08/04/19 10:03 Dose: 17 gm Sodium Chloride (Saline Flush) 10 ml FLUSH ONETIME PRN PRN Reason: IV FLUSH Last Admin: 08/02/19 10:27 Dose: 10 ml Trazodone HCl (Trazodone) 50 mg PO DAILY PRN PRN Reason: Insomnia Last Admin: 08/02/19 23:54 Dose: 50 mg Discontinued Medications Bisacodyl (Dulcolax) 10 mg RECTAL ONETIME ONE Stop: 08/03/19 12:17 Last Admin: 08/03/19 12:42 Dose: 10 mg Enoxaparin Sodium (Lovenox) 40 mg SUBCUT Q24H [facility] Hydromorphone HCl (Dilaudid) 0.5 mg IVPUSH ONETIME ONE Stop: 08/02/19 08:52 Last Admin: 08/02/19 09:04 Dose: 0.5 mg Hydromorphone HCl (Dilaudid) 0.5 mg IVPUSH ONETIME ONE Stop: 08/02/19 09:59 Last Admin: 08/02/19 10:05 Dose: 0.5 mg Hydromorphone HCl (Dilaudid) 0.5 mg IVPUSH ONETIME ONE Stop: 08/02/19 11:51 Last Admin: 08/02/19 11:56 Dose: 0.5 mg Dextrose/Lactated Ringer's (Dextrose 5%-Lactated Ringers) 1,000 mls @ 999 mls/ hr IV ASDIRECTED [facility] Last Admin: 08/02/19 09:04 Dose: 999 mls/hr Dextrose/Lactated Ringer's (Dextrose 5%-Lactated Ringers) 1,000 mls @ 500 mls/ hr IV ASDIRECTED [facility] Last Admin: 08/02/19 10:13 Dose: 500 mls/hr Dextrose/Sodium Chloride (Dextrose 5%-Normal Saline) 1,000 mls @ 150 mls/hr IV ASDIRECTED [facility] Stop: 08/03/19 19:54 Last Admin: 08/02/19 21:23 Dose: 150 mls/hr Magnesium Sulfate 4 gm/ Premix 50 mls @ 12.5 mls/hr IV ONETIME ONE Stop: 08/02/19 17:59 Last Admin: 08/02/19 13:54 Dose: 12.5 mls/hr Potassium Chloride/Dextrose/Sod Cl (D5 Ns With 20 Meq Kcl) 1,000 mls @ 150 mls/ hr IV ASDIRECTED [facility] Last Admin: 08/03/19 10:48 Dose: 150 mls/hr Potassium Chloride 10 meq/ (Premix) 100 mls @ 100 mls/hr IV Q1H [facility] Stop: 08/03/19 12:59 Last Admin: 08/03/19 14:32 Dose: 100 mls/hr Insulin Human Lispro (Humalog) 0 unit SUBCUT QIDACANDBED [facility]; Protocol Last Admin: 08/03/19 23:53 Dose: Not Given Iopamidol (Isovue-370 (76%)) 100 ml IVPUSH ONETIME ONE Stop: 08/02/19 10:13 Last Admin: 08/02/19 10:26 Dose: 100 ml Ketorolac Tromethamine (Toradol) 30 mg IV Q6H PRN PRN Reason: Pain (moderate 4-6) Metoclopramide HCl (Reglan) 10 mg IVPUSH ONETIME ONE Stop: 08/02/19 08:52 Last Admin: 08/02/19 09:04 Dose: 10 mg Morphine Sulfate (Morphine) 2 mg IVPUSH Q2H PRN PRN Reason: Pain (severe 7-10) Stop: 08/03/19 13:04 Last Admin: 08/03/19 12:47 Dose: 2 mg - Exam General: Alert, Oriented HEENT: Pupils Equal, Mucous Membr. Moist/[place] Neck: Supple Lungs: Clear to Auscultation, Normal Respiratory Effort Cardiovascular: Regular Rate, Regular Rhythm GI/Abdominal Exam: Normal Bowel Sounds, Soft, No Distention (Mild), Tender ( Mild epigastric). No: Guarding, Rigid, Rebound Extremities: Normal Inspection, No Pedal Edema, Normal Capillary Refill Skin: Warm, Dry, Intact Psy/Mental Status: Alert, Normal Affect, Normal Mood Sepsis Event Note - Evaluation Sepsis Screening Result: No Definite Risk - Focused Exam Vital Signs: Vital Signs Temp Pulse Resp BP Pulse Ox 08/04/19 08:17 98.1 F 88 20 158/87 H 98 08/04/19 04:12 97.9 F 100 16 144/88 H 98 08/04/19 00:55 97.9 F 98 16 154/87 H 97 Date Exam was Performed: 08/04/19 Time Exam was Performed: 13:17 - Problem List Review Problem List Initiated/Reviewed/Updated: Yes - My Orders Last 24 Hours: My Active Orders 08/03/19 14:35 HYDROmorphone [Dilaudid] 0.5 mg IVPUSH Q2H PRN 08/03/19 17:00 D5 1/2 NS w/ 20 mEq/L KCl 1,000 ml IV ASDIRECTED 08/04/19 08:15 Potassium Chloride [KCl 10 MEQ in Water 100 ML] 10 meq Premix Bag 1 bag IV Q1H 08/04/19 Breakfast Regular Diet [DIET] - Plan Plan:: Hemorrhagic pancreatitis Elevated lactic acid level -resolved Hypovolemia -resolved Orthostatic hypotension -resolved Nausea & vomiting -resolved Ascites Leukocytosis Hyperbilirubinemia Hypomagnesemia -resolved Hypokalemia Abnormal CT scan High anion gap metabolic acidosis -resolved Reports abdominal pain that began around July 28 Nausea and vomiting began July 29 Unable to keep anything down Has had diarrhea as well Denies hematochezia, hematemesis Lab abnormalities likely 2/2 hypovolemia 2/2 vomiting and poor oral intake CT scan shows: -Fluid within pelvis with Hounsfield unit measurement of blood -Questionable mild pancreatitis -Low density lesion in right kidney - recommend nonemergent MRI to further evaluate -Fatty infiltration within the liver Dr. Gallegos, general surgery consulted in ED Magnesium 1.6-->2.2--> 2.0 Lactic acid 2.6 --> 1.0 Blood cultures obtained in ED CRP WNL Leukocytosis 2/2 hypovolemia and mild pancreatitis 2L IV fluids given in ED Lipase 2256--> 419 No signs of cholelithiasis - Liver enzymes normal, GGT normal PLAN -Advance to regular diet -When tolerating regular diet stop IV fluids - Repeat CBC, CMP, Magnesium in AM - No obvious need for antibiotics as this time -Potassium chloride 40 mEq IV - Antiemetics as ordered - Atif's criteria: Inital - 2 pts. 1% predicted mortality rate - Pain medications as ordered History of alcohol use Reports he drinks heavily when off work and abstains from ETOH when working Last reported drink was Monday Denies any problems with detox or seizures in the past Unlikely to have alcohol withdrawal given reported last drink was 5 days prior to admission No signs of withdrawal PLAN - [facility] protocol - Ativan as needed - ETOH counseling - SW consult - Pancreatitis above likely induced by ETOH use Chronic neck pain History of cervical fracture Chronic, continuous use of opioids On home Percocet, meloxicam, and Soma PLAN - Continue meloxicam and soma - Monitor for worsening of symptoms - PRN pain medications as ordered DVT prophylaxis: VTE score of 1 - not indicated GI prophylaxis: Not indicated PCP: Dr. Minor Code status: Full code Disposition: Patient will be admitted for IV fluids, monitoring, and management of pancreatitis - likely ETOH induced. LOS likely 4 days. Prognosis: Guarded Recommend outpatient MRI of abdomen to evaluate right kidney lesion - unable to obtain MRI over weekend at our facility.
[2019-08-05] MEDS: HYDROmorphone 0.5 MG/0.5 ML Syringe IVPUSH PRN (06:11)
[2019-08-05] MEDS ORDERED: oxyCODONE 5 MG Tab PO PRN (08:03)
[2019-08-05] MEDS: Polyethylene Glycol 3350 Powder 17 GM Packet PO SCH (09:05)
[2019-08-05] MEDS: Docusate Sodium 100 MG Cap PO SCH (09:05)
--- NOTE | 2019-08-05 09:19 | PCM.DCSUM1 ---
Discharge Summary - Hospital Course HPI Initial Comments: Hieu Odell is a 54 yo male who presented to our ED on 08/02/19 with abdominal pain, nausea, and vomiting. He reports pain started across his mid abdomen on Monday, July 28 and then he began to vomit. He was able to keep down a small amount of fluid on July 28 but since then anytime he attempts to eat or drink he is vomited. Pain is increased and he reports it is constant with a colicky component. Reports pain is most prominent in his right upper quadrant and epigastric area. Reports he had 2 episodes of diarrhea yesterday. Reports his emesis has been bilious with no blood. Denies any fever, chills, or back pain. He has had inguinal hernia repair on 2 occasions. He also reports having had neck surgery secondary to a cervical spine fracture resulted in a PEG tube being placed. Twelve-lead EKG is obtained showing a sinus tachycardia at 120 bpm with enlarged P waves and early R wave transition in V3. There is a prolonged QT C. He is afebrile and blood pressure is 110/75. Pulse ox is 99% on room air with respiratory rate of 20. Labs are obtained showing leukocytosis at 23.94. Hemoglobin is barely low at 13.4. Platelets are high at 345,000. Neutrophils are elevated at 8% but there is no bandemia. INR is normal at 0.94. Sodium 137. Potassium on the low end of normal at 3.6. Chloride is 27. Anion gap is slightly elevated at 15.6. Creatinine is 1.2. GFR is greater than 60. Glucose is elevated to 16. Calcium is 8.8. Bilirubin is 1.1. GGT is 73. AST is 16, ALT 30, alkaline phosphatase 59. CRP is 1.0. Albumin is good at 3.6. Lipase is very high at 2256. Magnesium is low at 1.3. Ketones are elevated at 154. Hep C antibody is negative. Lactic acid is high at 2.6. He is given 2 D5LR fluid boluses and Dilaudid for pain. Chest x-rays obtained showing a small pneumothorax in the right upper chest which most likely is loculated and chronic. There is old bony trauma noted and nothing acute.0 abdominal ultrasound is obtained showing an echogenic liver most likely representing prominent fatty infiltration. Mild amount of ascites within the right upper abdomen. Obscured pancreas due to bowel gas. CT of the abdomen and pelvis is obtained showing fluid within the pelvis which appears to have a Hounsfield unit measurements of blood. Lesser fluid is seen within the upper abdomen around the liver and spleen and within the paracolic gutters. Etiology of findings not seen on his exam. Questionable mild pancreatitis around the pancreatic head and please correlate with amylase and lipase. Low-density lesion within the right kidney which is nonspecific regarding Hounsfield unit measurements differential includes solid lesion or hemorrhagic cyst. Nonemergent MRI is recommended to further evaluate. Fatty filtration with the liver and other findings as noted above which are felt to be nonacute. To do orthostatic vital signs in the ED however when he stood up he was too dizzy and his systolic blood pressure dropped to 85. Dr. Gallegos, general surgeon, was contacted in the ER and said he would be by to see this patient. He carries a history of prior neck surgery and he is on chronic opioid and muscle relaxant therapy for this. He was never a smoker. He does report alcohol use and states that he drinks significantly on his days off but then does not drink when he is working. He subsequently admitted to the medical floor for monitoring treatment of his pancreatitis, hypovolemia, and hypomagnesemia. Diagnosis: Stroke: No - Discharge Data Discharge Date: 08/05/19 Discharge Disposition: Home, Self-Care 01 Condition: Good - Referral to Home Health Primary Care Physician: Jasmeet Minor Jr, MD - Patient Summary/Data Consults: Consultations 08/02/19 13:02 Consult to Physician [CONS] Routine 08/02/19 15:24 Consult to Case Management/Stock Counter [CONS] Routine Hospital Course: Patient was admitted and started on IV fluid rehydration. He was kept n.p.o. for the first day. His lipase dropped significantly the first day from 2256 to 419. Patient's hemoglobin also dropped throughout the hospitalization but stabilized at 9.3. It appears patient had hemorrhagic pancreatitis, but on exam his abdomen was only mildly tender. Patient was discharged home feeling much better with no abdominal pain and tolerating a regular diet. He was counseled to not drink. On CT exam there was a lesion noted on the right kidney and they recommended follow-up MRI. Patient was then over the weekend and we are unable to obtain an MRI before discharge. Patient was counseled on the need for MRI of the abdomen as an outpatient. This will also be sent to his primary care provider. - Patient Instructions Diet: Usual Diet as Tolerated, No Alcoholic Beverages Activity: As Tolerated Driving: Do Not Drive (today) Showering/Bathing: May Shower Other/Special Instructions: Do not drink alcohol. Follow-up with primary care provider this week. - Discharge Plan *PRESCRIPTION DRUG MONITORING PROGRAM REVIEWED*: Not Applicable *COPY OF PRESCRIPTION DRUG MONITORING REPORT IN PATIENT ERICA: Not Applicable Home Medications: Home Meds Acetaminophen/oxyCODONE [Percocet 325-10 MG] 1 tab PO BID 08/02/19 [History] Sildenafil [Revatio] 20 mg PO ASDIRECTED PRN 08/02/19 [History] carisoprodoL [Soma] 350 mg PO BID 08/02/19 [History] Oxygen Therapy Mode: Room Air Patient Handouts: Acute Pancreatitis Referrals: Jasmeet Mnior Jr, MD [Primary Care Provider] - 08/08/19 1:00 am (Please follow up with Dr. Minor on at 1:30. Please arrive and register by 1: 00.) - Discharge Summary/Plan Comment DC Time >30 min.: Yes Discharge Summary/Plan Comment: Recommend outpatient MRI of abdomen to evaluate right kidney lesion - unable to obtain MRI over weekend at our facility. Discharged home in good condition. Follow-up with primary care provider. - General Info Date of Service: 08/05/19 Admission Dx/Problem (Free Text: acute pancreatitis Subjective Update: Patient is doing well. Had a small bowel movement yesterday. He is able to tolerate a regular diet. He does complain of his chronic neck pain and has required pain medication for it. Patient is on Percocet at home. Functional Status: Reports: Pain Controlled - Review of Systems General: Reports: No Symptoms HEENT: Reports: No Symptoms Pulmonary: Reports: No Symptoms Cardiovascular: Reports: No Symptoms Gastrointestinal: Reports: No Symptoms Genitourinary: Reports: No Symptoms Musculoskeletal: Reports: Neck Pain Skin: Reports: No Symptoms - Patient Data Vitals - Most Recent: Last Vital Signs Temp 98.6 F 08/05/19 08:17 Pulse 95 08/05/19 08:17 Resp 18 08/05/19 08:17 BP 132/90 08/05/19 08:17 Pulse Ox 97 08/05/19 08:17 Weight - Most Recent: 204 lb 4.8 oz I&O - Last 24 hours: Intake & Output 08/04/19 08/05/19 08/05/19 22:59 06:59 14:59 Intake Total 1807 1200 Output Total 1999 Balance -193 1200 Lab Results - Last 24 hrs: Laboratory Results - last 24 hr 08/05/19 08/05/19 Range/Units 05:00 05:00 WBC 10.79 H (4.23-9.07) K/mm3 RBC 2.75 L (4.63-6.08) M/mm3 Hgb 9.3 L (13.7-17.5) gm/dl Hct 27.9 L (40.1-51.0) % MCV 101.5 H (79.0-92.2) fl MCH 33.8 H (25.7-32.2) pg MCHC 33.3 (32.2-35.5) g/dl RDW Std Deviation 42.1 (35.1-43.9) fL Plt Count 260 (163-337) K/mm3 MPV 9.4 (9.4-12.3) fl Neut % (Auto) 71.5 H (34.0-67.9) % Lymph % (Auto) 12.5 L (21.8-53.1) % [place] % (Auto) 12.9 H (5.3-12.2) % Eos % (Auto) 2.0 (0.8-7.0) Baso % (Auto) 0.5 (0.1-1.2) % Neut # (Auto) 7.72 H (1.78-5.38) K/mm3 Lymph # (Auto) 1.35 (1.32-3.57) K/mm3 [place] # (Auto) 1.39 H (0.30-0.82) K/mm3 Eos # (Auto) 0.22 (0.04-0.54) K/mm3 Baso # (Auto) 0.05 (0.01-0.08) K/mm3 Sodium 135 L (136-145) mEq/L Potassium 3.7 (3.5-5.1) mEq/L Chloride 99 (98-107) mEq/L Carbon Dioxide 25 (21-32) mEq/L Anion Gap 14.7 (5-15) BUN 10 (7-18) mg/dL Creatinine 0.6 L (0.7-1.3) mg/dL Est Cr Clr Drug Dosing 167.44 mL/min Estimated GFR (MDRD) > 60 (>60) mL/min BUN/Creatinine Ratio 16.7 (14-18) Glucose 94 (74-106) mg/dL Calcium 8.8 (8.5-10.1) mg/dL Magnesium 2.0 (1.8-2.4) mg/dl Total Bilirubin 0.8 (0.2-1.0) mg/dL AST 18 (15-37) U/L ALT 24 (16-63) U/L Alkaline Phosphatase 53 (46-116) U/L Total Protein 6.9 (6.4-8.2) g/dl Albumin 3.1 L (3.4-5.0) g/dl Globulin 3.8 gm/dL Albumin/Globulin Ratio 0.8 L (1-2) SANDY Results - Last 24 hrs: Microbiology 08/02/19 09:35 Aerobic Blood Culture - Preliminary Blood - Venous - Lab Draw NO GROWTH AFTER 2 DAYS Anaerobic Blood Culture - Preliminary NO GROWTH AFTER 2 DAYS 08/02/19 09:28 Aerobic Blood Culture - Preliminary Blood - Venous NO GROWTH AFTER 2 DAYS Anaerobic Blood Culture - Preliminary NO GROWTH AFTER 2 DAYS Med Orders - Current: Current Medications Acetaminophen (Tylenol) 650 mg PO Q4H PRN PRN Reason: Pain (Mild 1-3)/fever Docusate Sodium (Colace) 100 mg PO DAILY [facility] Last Admin: 08/05/19 09:05 Dose: 100 mg Lorazepam (Ativan) 0 mg IVPUSH Q4H PRN; Protocol PRN Reason: withdrawl Ondansetron HCl (Zofran Odt) 4 mg PO Q6H PRN PRN Reason: nausea, able to take PO Ondansetron HCl (Zofran) 4 mg IV Q6H PRN PRN Reason: Nausea/Vomiting Oxycodone HCl (Oxycodone) 10 mg PO Q6H PRN PRN Reason: Pain (moderate 4-6) Last Admin: 08/05/19 09:06 Dose: 10 mg Polyethylene Glycol (Miralax) 17 gm PO DAILY [facility] Last Admin: 08/05/19 09:05 Dose: 17 gm Sodium Chloride (Saline Flush) 10 ml FLUSH ONETIME PRN PRN Reason: IV FLUSH Last Admin: 08/02/19 10:27 Dose: 10 ml Trazodone HCl (Trazodone) 50 mg PO DAILY PRN PRN Reason: Insomnia Last Admin: 08/02/19 23:54 Dose: 50 mg Discontinued Medications Bisacodyl (Dulcolax) 10 mg RECTAL ONETIME ONE Stop: 08/03/19 12:17 Last Admin: 08/03/19 12:42 Dose: 10 mg Enoxaparin Sodium (Lovenox) 40 mg SUBCUT Q24H [facility] Hydromorphone HCl (Dilaudid) 0.5 mg IVPUSH ONETIME ONE Stop: 08/02/19 08:52 Last Admin: 08/02/19 09:04 Dose: 0.5 mg Hydromorphone HCl (Dilaudid) 0.5 mg IVPUSH ONETIME ONE Stop: 08/02/19 09:59 Last Admin: 08/02/19 10:05 Dose: 0.5 mg Hydromorphone HCl (Dilaudid) 0.5 mg IVPUSH ONETIME ONE Stop: 08/02/19 11:51 Last Admin: 08/02/19 11:56 Dose: 0.5 mg Hydromorphone HCl (Dilaudid) 0.5 mg IVPUSH Q2H PRN PRN Reason: Pain (severe 7-10) Last Admin: 08/05/19 06:11 Dose: 0.5 mg Dextrose/Lactated Ringer's (Dextrose 5%-Lactated Ringers) 1,000 mls @ 999 mls/ hr IV ASDIRECTED [facility] Last Admin: 08/02/19 09:04 Dose: 999 mls/hr Dextrose/Lactated Ringer's (Dextrose 5%-Lactated Ringers) 1,000 mls @ 500 mls/ hr IV ASDIRECTED [facility] Last Admin: 08/02/19 10:13 Dose: 500 mls/hr Dextrose/Sodium Chloride (Dextrose 5%-Normal Saline) 1,000 mls @ 150 mls/hr IV ASDIRECTED [facility] Stop: 08/03/19 19:54 Last Admin: 08/02/19 21:23 Dose: 150 mls/hr Magnesium Sulfate 4 gm/ Premix 50 mls @ 12.5 mls/hr IV ONETIME ONE Stop: 08/02/19 17:59 Last Admin: 08/02/19 13:54 Dose: 12.5 mls/hr Potassium Chloride/Dextrose/Sod Cl (D5 Ns With 20 Meq Kcl) 1,000 mls @ 150 mls/ hr IV ASDIRECTED [facility] Last Admin: 08/03/19 10:48 Dose: 150 mls/hr Potassium Chloride 10 meq/ (Premix) 100 mls @ 100 mls/hr IV Q1H [facility] Stop: 08/03/19 12:59 Last Admin: 08/03/19 14:32 Dose: 100 mls/hr Potassium Chloride/Dextrose/Sod Cl (D5 1/2 Ns W/ 20 Meq/L Kcl) 1,000 mls @ 75 mls/hr IV ASDIRECTED [facility] Last Admin: 08/04/19 05:53 Dose: 75 mls/hr Potassium Chloride 10 meq/ (Premix) 100 mls @ 100 mls/hr IV Q1H [facility] Stop: 08/04/19 12:14 Last Admin: 08/04/19 12:11 Dose: 100 mls/hr Insulin Human Lispro (Humalog) 0 unit SUBCUT QIDACANDBED [facility]; Protocol Last Admin: 08/03/19 23:53 Dose: Not Given Iopamidol (Isovue-370 (76%)) 100 ml IVPUSH ONETIME ONE Stop: 08/02/19 10:13 Last Admin: 08/02/19 10:26 Dose: 100 ml Ketorolac Tromethamine (Toradol) 30 mg IV Q6H PRN PRN Reason: Pain (moderate 4-6) Metoclopramide HCl (Reglan) 10 mg IVPUSH ONETIME ONE Stop: 08/02/19 08:52 Last Admin: 08/02/19 09:04 Dose: 10 mg Morphine Sulfate (Morphine) 2 mg IVPUSH Q2H PRN PRN Reason: Pain (severe 7-10) Stop: 08/03/19 13:04 Last Admin: 08/03/19 12:47 Dose: 2 mg Carisoprodol [Soma] (350 Mg) 0 each PO BID [facility] Last Admin: 08/04/19 20:39 Dose: Not Given Meloxicam 15 Mg 0 each PO DAILY [facility] Last Admin: 08/04/19 10:04 Dose: Not Given - Exam General: Reports: Alert, Oriented HEENT: Reports: Pupils Equal, Mucous Membr. Moist/[place] Neck: Reports: Supple Lungs: Reports: Clear to Auscultation, Normal Respiratory Effort Cardiovascular: Reports: Regular Rate, Regular Rhythm GI/Abdominal Exam: Normal Bowel Sounds, Soft, Non-Tender, No Organomegaly, No Abnormal Bruit, No Mass, Pelvis Stable, Distended (Mildly distended and tympanic ) Back Exam: Reports: Normal Inspection, Full Range of Motion Extremities: Normal Inspection, Normal Range of Motion, Non-Tender, No Pedal Edema, Normal Capillary Refill Psy/Mental Status: Reports: Alert, Normal Affect, Normal Mood
== END 2019-08-05 10:20 | disposition home or self-care (01) | DRG 439 ==
LOC: JD.ED 08:31 → JD.MS 12:03
PROVIDERS: ADMIT Family Medicine; ATTEND Family Medicine
DX: K85.20 Alcohol induced acute pancreatitis without necrosis or infection (principal); R18.8 Other ascites; E87.2 Acidosis; K86.89 Other specified diseases of pancreas; E87.6 Hypokalemia; K40.90 Unilateral inguinal hernia, without obstruction or gangrene, not specified as recurrent; N28.89 Other specified disorders of kidney and ureter; E86.1 Hypovolemia; I95.1 Orthostatic hypotension; G89.29 Other chronic pain; M54.2 Cervicalgia; F11.90 Opioid use, unspecified, uncomplicated; E83.42 Hypomagnesemia; E80.6 Other disorders of bilirubin metabolism; Z87.81 Personal history of (healed) traumatic fracture; Z79.899 Other long term (current) drug therapy; Z90.89 Acquired absence of other organs
CPT/HCPCS: 36415; 71045; 71045-26; 74018; 74018-26; 74177; 74177-26; 76705; 76705-26; 80053; 80061; 82009; 82962; 82977; 83605; 83615; 83690; 83735; 84100; 85007; 85014; 85018; 85025; 85027; 85610; 85730; 86140; 86803; 87040; 93005; 93010; 96361; 96374; 96375; 96376; 99222; 99232; 99239; 99284; 99285-25; A9270-GY; J1170; J1815-GY; J2270; J2765; J3475; J3480; J7042; J7121; Q9967